=== PATIENT | female | born 1945 | race Caucasian/White ===

== ENCOUNTER → 2016-08-19 | Outpatient (REF) | payer MEDICARE, MEDICAID ==
[~2016-08-19] MED LIST: /IPRAINH INH; ACTO15TA6 PO; ADV250INH INH; ASPI325T PO; ATEN25TA PO; BACITAB3 PO; BACT800T5 PO; CEPH2CAP PO; CLIN150C PO; CYMB1CAP PO; DOC-8.6T PO; DOCU10ELUD PO; ENAL5TA PO; FURO40TA2 PO; GABA300C2 PO; GLIP10TA6 PO; GLYB5TAB5 PO; IPRASOL4 INH; IRON325T3 PO; KLOR10TA21 PO; LIPI10TA PO; LORA10TA2 PO; MAGN400T2 PO; METF1000 PO; MOME50SP; MUCI600T34 PO; NEBUMIS2 INH; OMEP40CA2 PO; OXYC80TA PO; PANT40TA2 PO; PERCOCET PO; PROAAER IN; SENN8.6C PO; SILV1CRE19 TOP; TETR250C3 PO; TYLE325T5 PO; VENTAER IN; VITA100T2 PO; VITA500C24 PO; ambien PO
[2016-08-19 18:10] LABS: ALBUMIN 2.8 GM/DL (3.2-5.2); ALBUMIN/GLOBULIN RATIO 0.62 (1.00-1.93); ALKALINE PHOSPHATASE 90 U/L (45-117); ALT/SGPT 7 U/L (12-78); AST/SGOT 13 U/L (15-37); BILIRUBIN,TOTAL 0.3 MG/DL (0.2-1.0); BLOOD UREA NITROGEN 10 MG/DL (7-18); CALCIUM LEVEL 8.5 MG/DL (8.8-10.2); CARBON DIOXIDE LEVEL 29 MEQ/L (21-32); CREATININE FOR GFR 0.64 MG/DL (0.55-1.02); GLOMERULAR FILTRATION RATE > 60.0 (>39); GLUCOSE, FASTING 160 MG/DL (83-110); TOTAL PROTEIN 7.3 GM/DL (6.4-8.2)
[2016-08-19 18:16] LABS: ANION GAP 8 MEQ/L (8-16); CHLORIDE LEVEL 104 MEQ/L (98-107); POTASSIUM SERUM 3.8 MEQ/L (3.5-5.1); SODIUM LEVEL 141 MEQ/L (136-145)
[2016-08-19 19:27] LABS: MEAN CORPUSCULAR HEMOGLOBIN 28.2 pg (27.0-33.0); MEAN CORPUSCULAR HGB CONC 31.7 g/dl (32.0-36.5); MEAN CORPUSCULAR VOLUME 88.8 fl (80.0-96.0); RED CELL DISTRIBUTION WIDTH 15.4 % (11.5-14.5); WHITE BLOOD COUNT 10.9 K/mm3 (4.0-10.0)
== END ==
LOC: M SFHCCLAY 11:28
PROVIDERS: ATTEND Family Medicine
DX: E11.42 Type 2 diabetes mellitus with diabetic polyneuropathy (principal); Z86.2 Personal history of diseases of the blood and blood-forming organs and certain disorders involving the immune mechanism
CPT/HCPCS: 36415; 80053; 83036; 85027; G0463

== ENCOUNTER → 2017-01-06 | Outpatient (REF) | payer MEDICARE, MEDICAID ==
[~2017-01-06] MED LIST changes: +ALBU83IN INH; +ALEV220T26 PO; +ASPI1TAB PO; +ASPI325T24 PO; +ATOR1TAB19 PO; +BACITAB PO; -BACITAB3 PO; +DIGO0.12 PO; -DOC-8.6T PO; +DOC-8.6T3 PO; +DULO1CAP2 PO; +ELIQ5TAB PO; +ENAL10TA2 PO; +GABA-282 PO; +METF10004 PO; +METO1TAB33 PO; +MIRA0.254 PO; +OXYC1TAB23 PO; +OXYC60TA8 PO; +PIOG15TA3 PO; +PROAAER10 INH; -SILV1CRE19 TOP; +SILV1CRE60 TOP; +STOO100C PO; +THIA100T6 PO; +VITMTA PO; +ZOLP10TA2 PO
[2017-01-07 11:23] LABS: BASO % 0.5 % (0.0-1.0); EOS # 0.2 K/mm3 (0.0-0.50); EOS % 1.6 % (0.0-3.0); LARGE UNSTAINED CELL # 0.1 K/mm3 (0.0-0.4); LARGE UNSTAINED CELL % 0.9 % (0.0-4.0); LYMPH # 1.6 K/mm3 (1.5-4.5); MEAN CORPUSCULAR HEMOGLOBIN 26.7 pg (27.0-33.0); MEAN CORPUSCULAR HGB CONC 30.6 g/dl (32.0-36.5); MEAN CORPUSCULAR VOLUME 87.3 fl (80.0-96.0); MONO # 0.5 K/mm3 (0.0-0.8); MONO % 4.8 % (0.0-5.0); NEUTROPHILS # 8.9 K/mm3 (1.8-7.7); NEUTROPHILS % 79.2 % (36.0-66.0); PLATELET COUNT, AUTOMATED 357 k/mm3 (150-450); RED CELL DISTRIBUTION WIDTH 15.8 % (11.5-14.5); WHITE BLOOD COUNT 11.2 K/mm3 (4.0-10.0)
[2017-01-07 11:38] LABS: ALBUMIN 2.9 GM/DL (3.2-5.2); ALBUMIN/GLOBULIN RATIO 0.66 (1.00-1.93); ALKALINE PHOSPHATASE 79 U/L (45-117); ALT/SGPT 16 U/L (12-78); ANION GAP 7 MEQ/L (8-16); AST/SGOT 40 U/L (15-37); BILIRUBIN,TOTAL 0.3 MG/DL (0.2-1.0); BLOOD UREA NITROGEN 20 MG/DL (7-18); CALCIUM LEVEL 8.8 MG/DL (8.8-10.2); CARBON DIOXIDE LEVEL 31 MEQ/L (21-32); CHLORIDE LEVEL 99 MEQ/L (98-107); CREATININE FOR GFR 0.95 MG/DL (0.55-1.02); GLOMERULAR FILTRATION RATE > 60.0 (>39); GLUCOSE, FASTING 195 MG/DL (83-110); POTASSIUM SERUM 5.1 MEQ/L (3.5-5.1); SODIUM LEVEL 137 MEQ/L (136-145); TOTAL PROTEIN 7.3 GM/DL (6.4-8.2)
== END ==
LOC: M SFHCCLAY 14:39
PROVIDERS: ATTEND Family Medicine
DX: E11.42 Type 2 diabetes mellitus with diabetic polyneuropathy (principal)
CPT/HCPCS: 36415; 80053; 83036; 85025; G0463

== ENCOUNTER → 2017-01-07 | Outpatient (REF) | payer MEDICARE, MEDICAID | LOC: M LAB REF 15:50 | PROVIDERS: ATTEND Podiatrist | DX: L97.522 Non-pressure chronic ulcer of other part of left foot with fat layer exposed (principal); E11.42 Type 2 diabetes mellitus with diabetic polyneuropathy ==

== ENCOUNTER 2017-01-27 16:30 | Inpatient (IN) | payer MEDICARE, MEDICAID ==
[~2017-01-27] VITALS: Ht 157.5 cm; Wt 59.6 kg
[~2017-01-27 16:30] MED LIST changes: -ALBU83IN INH; -ALEV220T26 PO; -ASPI1TAB PO; -ASPI325T24 PO; -ATOR1TAB19 PO; -DIGO0.12 PO; -DULO1CAP2 PO; -ELIQ5TAB PO; -ENAL10TA2 PO; -GABA-282 PO; -METF10004 PO; -METO1TAB33 PO; -MIRA0.254 PO; -OXYC1TAB23 PO; -OXYC60TA8 PO; -PIOG15TA3 PO; -PROAAER10 INH; -STOO100C PO; -THIA100T6 PO; -VITMTA PO; -ZOLP10TA2 PO
[2017-01-27 18:40] LABS: BASO % 0.4 % (0.0-1.0); EOS % 0.7 % (0.0-3.0); LARGE UNSTAINED CELL # 0.1 K/mm3 (0.0-0.4); LARGE UNSTAINED CELL % 1.1 % (0.0-4.0); LYMPH # 1.3 K/mm3 (1.5-4.5); LYMPH % 16.2 % (24.0-44.0); MEAN CORPUSCULAR HEMOGLOBIN 25.9 pg (27.0-33.0); MEAN CORPUSCULAR HGB CONC 30.1 g/dl (32.0-36.5); MEAN CORPUSCULAR VOLUME 86.2 fl (80.0-96.0); MONO # 0.3 K/mm3 (0.0-0.8); MONO % 3.4 % (0.0-5.0); NEUTROPHILS % 78.3 % (36.0-66.0); PLATELET COUNT, AUTOMATED 322 k/mm3 (150-450); RED CELL DISTRIBUTION WIDTH 16.4 % (11.5-14.5); WHITE BLOOD COUNT 7.7 K/mm3 (4.0-10.0)
[2017-01-27 18:42] LABS: ADD MORPHOLOGY? YES
[2017-01-27 18:52] LABS: ALBUMIN 2.4 GM/DL (3.2-5.2); ALBUMIN/GLOBULIN RATIO 0.62 (1.00-1.93); BILIRUBIN,DIRECT 0.1 MG/DL (0.0-0.2); BILIRUBIN,TOTAL 0.2 MG/DL (0.2-1.0); CALCIUM LEVEL 7.6 MG/DL (8.8-10.2); CREATININE FOR GFR 1.33 MG/DL (0.55-1.02); GLOMERULAR FILTRATION RATE 41.7 (>39); POTASSIUM SERUM 4.8 MEQ/L (3.5-5.1); TOTAL PROTEIN 6.3 GM/DL (6.4-8.2)
--- NOTE | 2017-01-27 19:19 | REP ---
PORTABLE CHEST: HISTORY: History of SIRS. COMPARISON: 06/12/2014, which is the latest prior. The technique utilized in obtaining the radiograph has magnified the cardiac silhouette and accentuated the interstitial markings. Upright portable exam shows pulmonary vascular redistribution and a diffuse haziness throughout the pulmonary vasculature with basilar predominance. There is cardiomegaly. The pacemaker device leads are unchanged. IMPRESSION: Cardiomegaly and evidence of interstitial edema. Bilateral pleural effusions right greater than left cannot be ruled out by this limited portable exam. Signed by Augustine Man DO 01/27/2017 07:44 P
[2017-01-27] MEDS ORDERED: VANCOMYCIN HCL 1,000 MG, VIAL MATE ADAPTER 1 EACH in D5W 250 ML IV ONE (19:45)
[2017-01-27 20:08] LABS: FREE T4 1.19 NG/DL (0.76-1.46); MAGNESIUM LEVEL 1.8 MG/DL (1.8-2.4); PHOSPHORUS LEVEL 4.2 MG/DL (2.5-4.9)
--- NOTE | 2017-01-27 20:10 | REPUSA ---
CLINICAL HISTORY: Edema. COMMENTS: Real time sonography with duplex doppler of the extremities bilaterally was performed with attention to the major deep venous structures. Evaluation reveals the common femoral, superficial femoral and popliteal veins bilaterally to be comp letely compressible without intraluminal thrombus. There is normal spontaneous phasic flow and augmen tation in all deep veins. The greater saphenous/common femoral vein junctions are patent bilaterally. 2 cm left Miller's cyst is noted incidentally. IMPRESSION: No evidence of DVT in the lower extremities bilaterally. 2 cm left Miller's cyst. Thank you for your kind referral of this patient.
[2017-01-27 20:16] LABS: ANISOCYTOSIS 1+; HYPOCHROMASIA 1+
[2017-01-27] MEDS ORDERED: METOPROLOL 5 MG/5 ML VIAL IV STA ×2 (20:29→22:13)
[2017-01-27] MEDS ORDERED: DIGOXIN INJ 0.5 MG/2 ML AMP (J1160) IV ONE (20:30)
[2017-01-27] MEDS ORDERED: NS 250 ML IV ONE (20:30)
[2017-01-27] MEDS ORDERED: oxyCODONE 10 MG CR TAB PO SCH (21:00)
[2017-01-27] MEDS ORDERED: AMIODARONE HCL 150 MG in APPROPRIATE DILUENT 1 EA IV STA (21:50)
[2017-01-27] MEDS ORDERED: DEXTROSE 50% 50 ML SYRINGE IV PRN (22:00)
[2017-01-27] MEDS ORDERED: GLUCAGON FOR INJ 1 MG VIAL (J1610) SC PRN (22:00)
[2017-01-27] MEDS ORDERED: GLUCOSE 4 GM CHEW TABLET PO PRN (22:00)
[2017-01-27] MEDS ORDERED: ASPI325T24 PO (22:01)
[2017-01-27] MEDS ORDERED: GABA-282 PO ×2 (22:01→22:05)
[2017-01-27] MEDS ORDERED: ALBU83IN INH (22:01)
[2017-01-27] MEDS ORDERED: ENAL10TA2 PO (22:01)
[2017-01-27] MEDS ORDERED: STOO100C PO (22:01)
[2017-01-27] MEDS ORDERED: MIRA0.254 PO (22:01)
[2017-01-27] MEDS ORDERED: ZOLP10TA2 PO (22:01)
[2017-01-27] MEDS ORDERED: VITMTA PO (22:01)
[2017-01-27] MEDS ORDERED: OXYC60TA8 PO (22:01)
[2017-01-27] MEDS ORDERED: FURO40TA2 PO (22:05)
[2017-01-27] MEDS ORDERED: PROAAER10 INH (22:05)
[2017-01-27] MEDS ORDERED: DULO1CAP2 PO (22:05)
[2017-01-27] MEDS ORDERED: ATOR1TAB19 PO (22:05)
[2017-01-27] MEDS ORDERED: OXYC1TAB23 PO (22:05)
[2017-01-27] MEDS ORDERED: THIA100T6 PO (22:05)
[2017-01-27] MEDS ORDERED: OMEP40CA2 PO (22:05)
[2017-01-27] MEDS ORDERED: LORA10TA2 PO (22:05)
[2017-01-27] MEDS ORDERED: METF10004 PO (22:05)
[2017-01-27] MEDS ORDERED: PIOG15TA3 PO (22:05)
[2017-01-27] MEDS ORDERED: ALEV220T26 PO (22:05)
[2017-01-27 22:13] LABS: PERCENT SATURATION 7.4 % (13.2-45.0)
[2017-01-27] MEDS ORDERED: ACETAMINOPHEN TAB 650MG DOSE (2X325MG) PO ONE (22:15)
[2017-01-27] MEDS ORDERED: FUROSEMIDE 20 MG/2 ML VIAL (J1940) IV ONE (22:15)
[2017-01-27 22:30] LABS: RETIC HEMOGLOBIN CONTENT CHr 25.9 PG (24-36); RETICULOCYTE % 2.7 % (0.5-1.5)
[2017-01-27 22:34] LABS: REASON FOR REVIEW ANEMIA / RBC MORPH
[2017-01-27] MEDS ORDERED: IPRATROPIUM 0.5MG/ALBUTEROL 2.5MG INH SOL UD 3ML (DUONEB)(J7620) NEB PRN (22:45)
[2017-01-27] MEDS ORDERED: PERCOCET 5MG/325MG TAB PO PRN (22:45)
[2017-01-27] MEDS ORDERED: PRAMIPEXOLE 0.25 MG TAB PO PRN (22:45)
[2017-01-27] MEDS ORDERED: zolPIDEM TARTRATE 5 MG TAB PO PRN (22:45)
[2017-01-27] MEDS: HumaLOG INSULIN (NovoLOG) PER UNIT SC SCH (22:58)
[2017-01-27 23:25] LABS: INR 1.11
[2017-01-27 23:30] VITALS: BP 95/67
[2017-01-28] VITALS (25 sets, daily range): BP systolic 87–130; BP diastolic 51–81; O2SAT 94
[2017-01-28] MEDS ORDERED: FUROSEMIDE 20 MG/2 ML VIAL (J1940) IV ONE ×2 (00:45→07:30)
[2017-01-28] MEDS ORDERED: ACETAMINOPHEN TAB 650MG DOSE (2X325MG) PO ONE (00:45)
[2017-01-28 01:16] LABS: DIGOXIN LEVEL 1.5 NG/ML (0.5-2.0)
[2017-01-28] MEDS: THIAMINE 100 MG TAB PO SCH ×3 (01:19→21:55)
[2017-01-28] MEDS: GABAPENTIN 300 MG CAP PO SCH ×4 (01:19→21:57)
[2017-01-28] MEDS: oxyCODONE 40 MG CR TAB PO SCH ×3 (01:19→21:57)
[2017-01-28] MEDS: IPRATROPIUM 0.5MG/ALBUTEROL 2.5MG INH SOL UD 3ML (DUONEB)(J7620) NEB SCH ×4 (01:56→23:17)
[2017-01-28] MEDS ORDERED: DIGOXIN INJ 0.5 MG/2 ML AMP (J1160) IV ONE (02:00)
--- NOTE | 2017-01-28 03:51 | PHACANCOPD ---
PHARMACY VANCOMYCIN DOSING Pt Demographics Demographics Patient Age:71 , Weight:62.000 , Gender: female Adjusted Body Weight Date: 01/28/17, Adjusted Body Weight: [52.27] Kg ACTUAL WT Vancomycin Vancomycin indication: LE CELLULITIS Vancomycin Target Ranges: 10-20 mcg/ml Vancomycin Load Y/N: No Load Dose Date Time Vancomycin Load Dose: Date: Time: Vancomycin Dose Date: 01/28/17. Current Vancomycin Dose: [1 GM IV Q24H] Intermittent Dosing?: No Labs Labs Laboratory Tests 01/27/17 17:57 Red Blood Count 3.32 L, Mean Corpuscular Volume 86.2, Mean Corpuscular Hemoglobin 25.9 L, Mean Corpuscular Hemoglobin Concent 30.1 L, Red Cell Distribution Width 16.4 H, Neutrophils (%) (Auto) 78.3 H, Lymphocytes (%) (Auto ) 16.2 L, Monocytes (%) (Auto) 3.4, Eosinophils (%) (Auto) 0.7, Basophils (%) ( Auto) 0.4, Neutrophils # (Auto) 6.0, Lymphocytes # (Auto) 1.3 L, Monocytes # ( Auto) 0.3, Eosinophils # (Auto) 0.0, Basophils # (Auto) 0.0 Micro Microbiology 01/27/17 Blood Culture, Received Pending 01/27/17 Blood Culture, Received Pending 01/28/17 Urine Culture, Received Pending Creatinine Clearance Date:01/28/17. Creatinine Clearance: [34.3].CALCULATED Pending Labs VANCOMYCIN TROUGH DUE 01/29@1099 Assessment and Plan Maintaining Current Dose?: Yes Reason for dose change: No Dose Change Pharmacist Note Pharmacist Note Date: 01/28/17. Pharmacist note:71yof,SCR=1.33,crcl=34.3,ht=62",wt=52.27, ALLERGIES:QUINOLONES,AUGMENTIN,CLARITHROMYCIN PRESENTED WITH LE CELLULITIS, VANCO 1 GM IN ED@01/27,Will continue at 1 gm iv Q24H@1200,first trough ordered for 01/29@1100 [facility] Jan 28, 2017 03:51
--- NOTE | 2017-01-28 04:48 | HPE ---
DATE OF ADMISSION: 01/27/2017 TIME: Patient was seen at 2100 PRIMARY CARE PROVIDER: Zackary Lorenz MD. DEVELOPMENT GEOLOGIST: Cherrie Mtz MD. RADIO TELEVISION ANNOUNCER: Tito Aguilar DPM. CHIEF COMPLAINT: Atrial fibrillation with rapid ventricular response (RVR) with palpitations and also swelling in the lower extremity, was sent by Dr. Aguilar from his office. HISTORY OF PRESENT ILLNESS: 71-year-old female with a past medical history of uncontrolled type 2 diabetes, hyperlipidemia, scoliosis, cellulitis of the bilateral feet, and also diabetic ulcer of bilateral feet, dual chamber pacemaker, heart failure with preserved ejection fraction and grade I diastolic dysfunction, heavily thickened calcification and restricted mitral leaflet abnormality with severe mitral stenosis, mild tricuspid insufficiency, at least mild pulmonary hypertension, presented with swelling in the lower extremities and also atrial fibrillation with RVR, was sent by Dr. Aguilar from his office this afternoon. Per patient, she has been feeling shortness of breath for roughly 1 week. Also felt palpitations at times and she was also feeling very weak and feeling dizzy when she tries to stand up. She also admits to roughly 20-pound weight loss in 1 month and patient does not know the cause of it. She also complains of diarrhea, 2-3 times a day for the past 1 week; however, it was nonbloody per patient. Otherwise, patient denies any chest pain, chest pressure , any current nausea, vomiting or abdominal pain. Stated that last bowel movement was yesterday. Has not had any diarrhea today yet; however, she is feeling a little bit bloated and she noticed increased swelling in the lower extremities, which is unusual for her. Otherwise, she does have bilateral diabetic ulcer and follows Dr. Aguilar. She also follows Dr. Mtz for atrial fibrillation and also heart failure and possibly high degree AV block with pacemaker placement. ALLERGIES: She is allergic to AMOXICILLIN, CLARITHROMYCIN, CLAVULANIC ACID, MELOXICAM, NORFLOXACIN, PHENAZOPYRIDINE, QUINOLONES. CODE STATUS: The patient is FULL CODE. HOME MEDICATIONS: - albuterol sulfate 2.5 mg inhalation every 6 hours as needed - ProAir two puff inhalation every 4 hours - vitamin C 500 mg one tablet by mouth daily - aspirin 325 mg one tablet by mouth daily - atorvastatin 10 mg one tablet by mouth daily - docusate sodium 100 mg one tablet by mouth twice a day - duloxetine 30 mg one tablet by mouth daily - enalapril 10 mg one tablet by mouth daily - Lasix 40 mg one tablet by mouth twice a day - gabapentin 300 mg one tablet by mouth twice a day - gabapentin 600 mg one tablet by mouth daily - glipizide 10 mg by mouth twice a day - loratadine 10 mg by mouth daily - metformin 1000 mg one tablet by mouth twice a day - multivitamin one tablet by mouth daily - naproxen 440 mg one tablet by mouth twice a day as needed - omeprazole 40 mg one tablet by mouth twice a day - oxycodone 60 mg one tablet by mouth every 12 hours - oxycodone/acetaminophen one tablet by mouth every 6 hours as needed - pioglitazone 15 mg one tablet by mouth daily - Mirapex 0.25 mg one tablet by mouth twice a day as needed - silver sulfadiazine one topically twice a day, use on the right foot - thiamine 100 mg by mouth twice a day - zolpidem 10 mg by mouth nightly PAST MEDICAL HISTORY: 1. Type 2 diabetes, not on insulin at home. 2. Hyperlipidemia. 3. Scoliosis. 4. Chronic diabetic ulcer of bilateral feet. 5. 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 6. Atrial fibrillation. 7. History of falls. 8. Mitral stenosis 9. Heart failure with preserved ejection fraction. 10. Chronic pains. 11. Vitamin deficiency. 12. Insomnia. PAST SURGICAL HISTORY: 1. Pacemaker placement. 2. Amputated third and fourth digit on the left lower extremity due to uncontrolled diabetes. 3. Tendon repair. 4. Cataract repair. SOCIAL HISTORY: Patient currently admits to smoking about half pack per day for at least 40 years. Denies any drinking or use of any recreational drugs. Patient lives with her roommate. Patient did travel recently to [place] to visit patient's daughter and over there she did have an admission to the hospital for sepsis and septic encephalopathy. FAMILY HISTORY: Patient has three children. One of her sons from leukemia. Patient's father also from heart disease. Mother is healthy. Brother was diagnosed with kidney disease. REVIEW OF SYSTEMS: GENERAL: Patient denies any fever or chills recently. Admits to feeling tired and dizzy, especially when she tried to stand up. Denies any sick contact; however, she did travel back to [place] to visit her daughter back in October and had a recent admission at the end of October, early November for possibly sepsis and septic encephalopathy. She does admit to recent antibiotic usage for patient's diabetic foot ulcer. Patient also admits to weight loss, about 20 pounds in 1 month, which was unexplained. HEENT: Denies any changes with vision, smell, hearing or taste. CARDIOVASCULAR: Admits to orthopnea. Patient sleeps with two pillows at night. Admits to increased shortness of breath recently and increased swelling in the lower extremities. Denies any chest pain. Admits to palpitations. Admits to dizziness when she tries to stand up. PULMONARY: Admits to sleep apnea. Denies any use of oxygen. Denies any cough. Denies any sputum production. Admits to increased shortness of breath in the past 1 week. GASTROINTESTINAL (GI): Denies any abdominal pain currently; however, she does admit to cramps intermittently for the past 1 week. She also has diarrhea, about 2-3 times a day. It was watery and brown looking. Denies any blood in the stool. Admits to occasional nausea, however, currently feels okay. Denies any vomiting. Denies any constipation. GENITOURINARY (): Denies any problem with urination. Denies any dysuria, urinary urgency, urinary incontinence or burning on urination. MUSCULOSKELETAL: Admits to severe scoliosis and chronic pains as a result. NEUROLOGICAL: Denies any weakness on any one side of her body. However, admits to generalized weakness. HEMATOLOGY/ONCOLOGY: Denies any bleeding anywhere. Denies any easy bruising. However, she does have type 2 diabetes. PSYCHIATRIC: Denies any anxiety, depression. PHYSICAL EXAMINATION: VITAL SIGNS: Temperature 98.7, pulse 136, blood pressure 111/60. Oxygen was saturating at 93% on room air. GENERAL: Patient is an obese-looking elderly female who was alert, awake, and oriented times three. Does not appear to be in distress, lying comfortably in bed with head elevated at 60 degrees. HEENT: Normocephalic, atraumatic. Extraocular motor intact. Mucosa moist. NECK: Supple, no neck lymphadenopathy. No significant jugular venous distention (JVD) was noted. CARDIOVASCULAR: Tachycardic, irregular, irregular. No murmurs. LUNGS: Bilaterally with rales, especially in the basilar region. ABDOMEN: Positive bowel sounds. Slightly distended. No peritoneal signs. No ecchymosis. Not tender to palpation. EXTREMITIES: 1+ pitting edema throughout the lower extremities extending all the way to the waistline. SKIN: Warm and dry. NEUROLOGIC: Cranial nerves II-XII intact. No focal neurological deficit. LABORATORY DATA: WBC 7.7, hemoglobin 8.6, hematocrit 28.6 with a platelet count of 322 and MCV of 86.2. ESR was 54, absolute reticulocyte count was 92, elevated, percentage reticulocyte was 2.7. Sodium 138, potassium 4.2, chloride 106, bicarbonate 21, anion gap 11, BUN 32, creatinine 1.33, GFR 41.7. Patient's baseline GFR was greater than 60%. Lactic acid was elevated 3.6, calcium 7.6, phosphorus 4.2, magnesium 1.8, iron 18, TIBC 242, transferrin percentage was 7.4, ferritin was 33. Total bilirubin 0.2, direct bilirubin 0.1, AST 16, ALT 13, alkaline phosphatase 60, creatinine kinase 123, CK-MB 8.6, troponin elevated 0.25, CRP was 2.8, total protein 6.3, albumin 2.4, TSH 1.6, free T4 1.19. PT , INR, PTT are all pending. Patient's glucose was 101. Blood culture times two are pending. Two units of packed red blood cells (PRBCs ) have been ordered. Will transfuse 1 unit PRBC currently. Patient has a lower extremity Doppler ultrasound ordered, shows no DVT, however, there was a 2 cm left Miller's cyst. Patient also has a portable chest x-ray done in the emergency room, shows cardiomegaly, and evidence of interstitial edema, bilateral pleural effusion, right greater than left, cannot rule out by limited portable exam. ASSESSMENT AND PLAN: 71-year-old female with multiple comorbidities, most significantly atrial fibrillation, not on anticoagulation due to possibly fall risk, high degree AV block, status post pacemaker placement, mitral stenosis, uncontrolled type 2 diabetes, diabetic foot ulcers, heart failure with preserved ejection fraction, hyperlipidemia, scoliosis, insomnia, obstructive sleep apnea on continuous positive airway pressure (CPAP) at night, presented with: 1. Atrial fibrillation with rapid ventricular response (RVR). Ventricular rate was in the 140s, 150s. Dr. Wilson from cardiology has been consulted. We appreciate his help. Recommended to give patient digoxin. Therefore, digoxin has been ordered. However, emergency room's digoxin somehow was not given to patient. Therefore, a repeat dose was ordered again. Etiology of RVR appears to be multifactorial. Possibly secondary to decompensated heart failure versus infectious etiologies. At this point, will continue to monitor patient on cardiac telemetry. Will continue beta tanya and digoxin and follow cardiology recommendations and follow strict intake and output (I and O). 2. Decompensated heart failure possibly due to afib with RVR with lower extremity edema extending all the way to the waistline. Complicated by mitral stenosis. Patient did receive a small dose of Lasix 20 mg in the emergency room. We have ordered another 40 mg intravenous (IV). At this point, will be very gentle with diuresis due to patient's blood pressure appears to be soft, systolic around 100. Will continue strict I and O and follow cardiology recommendations. 3. Possible acute gastrointestinal (GI) blood loss anemia with a hemoglobin of 8.6. Patient's baseline appears to be roughly 10. Rectal exam was done, no melissa blood. Fecal occult blood has been ordered. Will followup. At this point, will transfuse patient with 1 unit of packed red blood cells (PRBC). Will consider to transfuse another unit if needed and will give patient one dose of Lasix 40 mg IV due to patient's heart failure and continue to monitor. Currently, patient does not require oxygen. 4. Pulmonary edema with bilateral pleural effusion. Possibly secondary to heart failure. Will continue to monitor. At this point, patient does not require oxygen. Will treat patient's heart failure and followup with the resolution of the pleural effusion. 5. Abdominal cramp with diarrhea for more than a week and also recent use of antibiotic. However, there is no white count. Suspicious of possible intra-abdominal etiology such as Clostridium (C) difficile. GI panel has been ordered. Will followup. Once patient becomes more stable, possibly followup with a CT of abdomen. At this point, will start patient on regular diet with no added salt with fluid restriction due to patient does not complain of any nausea currently and did have a bowel movement yesterday. However, will place patient on aspiration precautions. 6. Diabetic foot ulcer. Follows Dr. Aguilar in his office and was recently on antibiotic. We have consulted Dr. Aguilar and will follow his recommendations. Currently, the foot ulcer does appear to be erythematous. Therefore, will start patient on vancomycin IV every 24 hours and continue to monitor. 7. Uncontrolled type 2 diabetes. Continue patient on insulin sliding scale. Will hold all home medications. 8. Chronic pain due to scoliosis. Will continue to monitor and will restart patient's home medications. 9. Possible history of chronic obstructive pulmonary disease (COPD), however, it was not on her medical record. Continue DuoNebs. 10. Obstructive sleep apnea on CPAP at night. Patient stated that she could not bring the CPAP machine from home due to patient's roommate is not home. Therefore, will start patient with an inpatient CPAP and have friend to bring in the CPAP machine whenever it is possible. 11. Hyperlipidemia. Continue home statin. 12. History of insomnia. We have reduced patient's Ambien from 10 mg to 2.5 mg due to increased shortness of breath and also sleep apnea. 13. The patient has acute kidney injury with a creatinine of 1.33. Possibly from heart failure versus dehydration. Urine electrolytes have been ordered. Will followup. 14. Elevated troponin, which was 0.25. Will continue to trend. Possibly secondary to demand ischemia from atrial fibrillation. Will continue home aspirin and statin. 15. Deep venous thrombosis (DVT) prophylaxis with heparin 5000 units twice a day and also sequential compression devices (SCDs) and thromboembolism deterrent stockings (TEDS). 16. Fluid, electrolytes and diet. Will hold any IV fluid currently due to heart failure. Potassium appears to be 4.8. Does not need to be repleted. The patient is on a carbohydrate consistent diet with no added salt and 2 liters of fluid restriction currently. DISPOSITION: Patient has atrial fibrillation that is multifactorial, possibly due to heart failure versus infection. Patient also having demand ischemia. Dr. Wilson from cardiology has been consulted. In addition, Dr. Aguilar from podiatry has been consulted. Will follow their recommendations. Patient will be seen by Dr. Lorenz in the morning. Patient has been discussed with attending doctor, Dr. Harrell. My preceptor for this patient encounter was Dr. Philly Harrell. The preceptor was physically present in the building during the encounter and was fully available as needed. All aspects of the patient interview, examination, medical decision making process, and medical care plan development were reviewed and approved by the preceptor. The preceptor is aware and concurs with the plan as stated in the body of this note and will attest to such by his/her co-signature. ATTENDING PHYSICIAN ADDENDUM: I have independently interviewed and examined this patient at the bedside, and agree with the assessment and management plans as I have discussed with my Resident Physician and documented above. ESTHER
[2017-01-28] MEDS ORDERED: METOPROLOL 5 MG/5 ML VIAL IV SCH (05:00)
--- NOTE | 2017-01-28 07:11 | ECGEPIP ---
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
--- NOTE | 2017-01-28 07:11 | ECGEPIP ---
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
[2017-01-28] MEDS: HumaLOG INSULIN (NovoLOG) PER UNIT SC SCH ×4 (07:36→21:52)
[2017-01-28] MEDS: ATORVASTATIN 10 MG TAB PO SCH (08:03)
[2017-01-28] MEDS: MULTIVITAMINS/MINERALS THERAP 1 TAB PO SCH (08:03)
[2017-01-28] MEDS: LACTOBACILLUS ACIDOPHILUS CAP (BACID) PO SCH ×2 (08:03→21:55)
[2017-01-28] MEDS: OMEPRAZOLE 20 MG CAP PO SCH (08:04)
[2017-01-28] MEDS: LORATADINE 10 MG TAB PO SCH (08:04)
[2017-01-28] MEDS: DOCUSATE SODIUM 100 MG CAP PO SCH ×2 (08:05→21:57)
[2017-01-28] MEDS: DULoxetine 30 MG CAP (CYMBALTA) PO SCH (08:05)
[2017-01-28] MEDS: ASPIRIN ENTERIC 325 MG TAB PO SCH (08:05)
[2017-01-28] MEDS: ASCORBIC ACID 500 MG TAB PO SCH (08:05)
[2017-01-28 08:37] LABS: MEAN CORPUSCULAR HEMOGLOBIN 27.5 pg (27.0-33.0); MEAN CORPUSCULAR VOLUME 88.7 fl (80.0-96.0); RED CELL DISTRIBUTION WIDTH 15.9 % (11.5-14.5); WHITE BLOOD COUNT 8.8 K/mm3 (4.0-10.0)
[2017-01-28 08:59] LABS: CALCIUM LEVEL 8.4 MG/DL (8.8-10.2); CREATININE FOR GFR 1.39 MG/DL (0.55-1.02); GLOMERULAR FILTRATION RATE 39.7 (>39); POTASSIUM SERUM 4.9 MEQ/L (3.5-5.1)
[2017-01-28] MEDS ORDERED: APIXABAN 2.5 MG TAB (ELIQUIS) PO SCH (09:00)
[2017-01-28] MEDS ORDERED: SILVER SULFADIAZINE 1% CR 50 GM JAR TOP SCH (09:00)
--- NOTE | 2017-01-28 09:16 | IPNPDOC ---
Subjective Date Seen The patient was seen on 01/28/17. Subjective Chief Complaint/HPI The patient is a 71-year-old female admitted with a reason for visit of A-Fib With Rapid Ventricular Response. Events since last encounter Pt states she is feeling better today. Still a little shortness of breath but states breathing is better. Denies CP, ABD pain. Denies any further diarrhea. Had solid BM last night. Denies F/C. Constitutional: Denies: Chills, Fever Pulmonary: Reports: Dyspnea Cardiovascular: Denies: Chest Pain, Palpitations Gastrointestinal: Denies: Nausea, Vomiting, Abdominal Pain, Diarrhea Objective Physical Examination General Exam: Positive: Alert, No Acute Distress Neck Exam: Positive: Supple, Negative: JVD Chest Exam: Positive: Clear to auscultation Heart Exam: Positive: Irregular Rhythm Telemetry: Positive: Atrial fibrillation Abdomen Exam: Positive: Normal bowel sounds, Soft, Negative: Tenderness Extremity Exam: Positive: Edema (1+ pitting edema L>R. B/L distal erythema.) Assessment /Plan Problems (1) Atrial fibrillation with rapid ventricular response Status: Acute Problem Specific Plan: Consult Specialist, Monitor Clinically, Repeat Labs Problem Text: 01/28 - Cardiology consulted. Pt seen by Dr Mtz whom she follows with as outpt. Pt getting Lopressor 5 mg IV q6hrs. Did get Dig in ER. Not getting anticoagulation. Anemic with question of blood loss. Received 2 units PRBCs. AM Hgb pending. (2) CHF (congestive heart failure) Status: Acute Problem Specific Plan: Consult Specialist, Monitor Clinically, Repeat Labs Problem Text: 01/28 - Cardiology consulted. BNP 556. Received Lasix last night and earlier this AM between PRBC transfusions. BPs a little soft. (3) Elevated troponin Status: Acute Problem Specific Plan: Consult Specialist, Monitor Clinically, Repeat Labs Problem Text: 01/28 - Cardiology consulted. Trops 0.25/ 0.24/ Pending. (4) Cellulitis of both lower extremities Status: Acute Problem Specific Plan: Monitor Clinically, Repeat Labs Problem Text: 01/28 - Started on Vanco. Today's WBC pending. Doppler U/S: No evidence of DVT in the lower extremities bilaterally. 2 cm left Miller's cyst. (5) Anemia Status: Acute Problem Specific Plan: Monitor Clinically, Repeat Labs Problem Text: 01/28 - Pt received 2 units PRBCs. Today's CBC Pending. (6) Pleural effusion Status: Acute Problem Specific Plan: Monitor Clinically, Repeat Labs Problem Text: Possibly secondary to heart failure. (7) Diabetic foot ulcer Status: Acute Problem Specific Plan: Consult Specialist, Monitor Clinically, Repeat Labs Problem Text: 01/28 - Follows with Dr Aguilar/podiatry. Started on Vanco. (8) DM2 (diabetes mellitus, type 2) Status: Chronic Problem Specific Plan: Monitor Clinically, Repeat Labs Problem Text: SSI (9) Hyperlipidemia Status: Chronic Problem Specific Plan: Monitor Clinically, Repeat Labs Problem Text: Lipitor (10) ANGEL LUIS (acute kidney injury) Status: Acute Problem Specific Plan: Monitor Clinically, Repeat Labs Problem Text: 01/28 - Today's labs pending. Plan/VTE VTE Prophylaxis Ordered?: No (order TEDs and SCDs) Plan/Urinary Catheter Reason for insertion/continuin: Critical Pt monitoring VS, I&O, 24H, Fishbone Vital Signs/I&O Vital Signs Date Time Temp Pulse Resp B/P (MAP) Pulse Ox O2 Delivery O2 Flow Rate FiO2 01/28/17 08:05 18 98 Nasal Cannula 2.0 01/28/17 07:00 98.8 108 106/62 (77) I&O- Last 24 Hours up to 6 AM 01/28/17 06:00 Intake Total 670 ml Output Total 140 ml Balance 530 ml Laboratory Data 24H LABS Laboratory Tests 2 01/27/17 17:57: White Blood Count 7.7, Red Blood Count 3.32L, Hemoglobin 8.6L, Hematocrit 28.6L , Mean Corpuscular Volume 86.2, Mean Corpuscular Hemoglobin 25.9L, Mean Corpuscular Hemoglobin Concent 30.1L, Red Cell Distribution Width 16.4H, Platelet Count 322, Neutrophils (%) (Auto) 78.3H, Lymphocytes (%) (Auto) 16.2L, Monocytes (%) (Auto) 3.4, Eosinophils (%) (Auto) 0.7, Basophils (%) (Auto) 0.4, Neutrophils # (Auto) 6.0, Lymphocytes # (Auto) 1.3L, Monocytes # (Auto) 0.3, Eosinophils # (Auto) 0.0, Basophils # (Auto) 0.0, Large Unclassified Cells % 1.1 , Large Unclassified Cells # 0.1, Differential Slide Review Report, Differential Pathologist's Review ANEMIA / RBC MORPH, Platelet Estimate NORMAL, Hypochromasia 1+, Anisocytosis 1+, Peripheral Blood Smear Path Consult PERIPHERAL SMEAR, Erythrocyte Sedimentation Rate 54H, Absolute Reticulocyte Count 92H, Percent Reticulocyte Count 2.70H, Reticulocyte Hgb Content (CHr) 25.9 , Anion Gap 11, Glomerular Filtration Rate 41.7, Lactic Acid Level 3.6*H, Calcium Level 7.6L, Phosphorus Level 4.2, Magnesium Level 1.8, Iron Level 18L, Total Iron Binding Capacity 242L, Transferrin % Saturation 7.4L, Ferritin 33, Aspartate Amino Transf (AST/SGOT) 16, Alanine Aminotransferase (ALT/SGPT) 13, Alkaline Phosphatase 60, Total Bilirubin 0.2, Direct Bilirubin 0.1, Total Creatine Kinase 123, Creatine Kinase MB 8.6H, Creatine Kinase MB Relative Index 6.99H, Troponin I 0.25H, C-Reactive Protein, Quantitative 2.80H, Total Protein 6.3L, Albumin 2.4L, Albumin/Globulin Ratio 0.62L, Thyroid Stimulating Hormone ( TSH) 1.690, Free Thyroxine 1.19 01/27/17 22:57: Bedside Glucose (Misc Panel) 101 01/27/17 23:11: Prothrombin Time 14.5, Prothromb Time International Ratio 1.11, Activated Partial Thromboplast Time 36.4 01/27/17 23:12: Osmolality 297 01/28/17 00:16: Lactic Acid Level 2.1*H, Total Creatine Kinase 135, Creatine Kinase MB 8.7H, Creatine Kinase MB Relative Index 6.44H, Troponin I 0.24H, Digoxin Level 1.5 01/28/17 02:14: Urine Appearance CLEAR, Urine Color YELLOW, Urine pH 5.0, Urine Specific [place] 1.009, Urine Protein NEGATIVE, Urine Glucose (UA) NEGATIVE, Urine Ketones NEGATIVE, Urine Urobilinogen 0.2, Urine Bilirubin NEGATIVE, Urine Leukocyte Esterase NEGATIVE, Urine Blood NEGATIVE, Urine Nitrite NEGATIVE, Urine WBC (Auto) 0, Urine RBC (Auto) 0, Urine Hyaline Casts (Auto) 3, Urine Bacteria (Auto) NEGATIVE, Urine Squamous Epithelial Cells 0, Urine Mucus (Auto) SMALL, Urine Sperm (Auto) , Urine Random Osmolality 320L, Urine Random Creatinine 48.7 01/28/17 07:27: Bedside Glucose (Misc Panel) 128H 01/28/17 08:18: B-Type Natriuretic Peptide 562H CBC/BMP Laboratory Tests 01/27/17 17:57 Red Blood Count 3.32 L, Mean Corpuscular Volume 86.2, Mean Corpuscular Hemoglobin 25.9 L, Mean Corpuscular Hemoglobin Concent 30.1 L, Red Cell Distribution Width 16.4 H, Neutrophils (%) (Auto) 78.3 H, Lymphocytes (%) (Auto ) 16.2 L, Monocytes (%) (Auto) 3.4, Eosinophils (%) (Auto) 0.7, Basophils (%) ( Auto) 0.4, Neutrophils # (Auto) 6.0, Lymphocytes # (Auto) 1.3 L, Monocytes # ( Auto) 0.3, Eosinophils # (Auto) 0.0, Basophils # (Auto) 0.0 Microbiology Microbiology 01/27/17 Blood Culture, Received Pending 01/27/17 Blood Culture, Received Pending 01/28/17 Stool Occult Blood (RYAN) - Final, Complete 01/28/17 Gastrointestinal Tract Panel (PCR), Ordered Pending 01/28/17 Urine Culture, Received Pending Tod Quiroz RPA-C Jan 28, 2017 09:16
--- NOTE | 2017-01-28 09:41 | REP ---
Portable chest, 07:00 a.m., 01/28/2017, single AP view the patient semi upright: Comparison is 2016. Pacemaker and cardiomegaly are again identified, unchanged. There is thoracic scoliosis convex right, unchanged. Pulmonary vascular redistribution is again identified. There is increased radiodensity inferiorly on the right which could be a right pleural effusion or focal infiltrate or combination. There is an old right humeral neck fracture. Impression: Cardiomegaly and vascular redistribution. Pacemaker. New right infiltrate/effusion/combination. Signed by Juan Vigil MD 01/28/2017 07:42 A
[2017-01-28] MEDS: METOPROLOL TART 25 MG TABLET PO SCH ×2 (11:48→18:04)
[2017-01-28] MEDS ORDERED: VANCOMYCIN HCL 1,000 MG, VIAL MATE ADAPTER 1 EACH in D5W 250 ML IV SCH (12:00)
[2017-01-28] MEDS: APIXABAN 2.5 MG TAB (ELIQUIS) PO SCH (21:57)
[2017-01-29] VITALS (9 sets, daily range): BP systolic 90–103; BP diastolic 50–78
[2017-01-29] MEDS: METOPROLOL TART 25 MG TABLET PO SCH ×5 (00:17→23:51)
[2017-01-29 05:15] LABS: MEAN CORPUSCULAR HEMOGLOBIN 27.3 pg (27.0-33.0); MEAN CORPUSCULAR HGB CONC 31.1 g/dl (32.0-36.5); MEAN CORPUSCULAR VOLUME 87.9 fl (80.0-96.0); WHITE BLOOD COUNT 7.8 K/mm3 (4.0-10.0)
[2017-01-29 05:32] LABS: CALCIUM LEVEL 7.9 MG/DL (8.8-10.2); CREATININE FOR GFR 1.1 MG/DL (0.55-1.02)
[2017-01-29] MEDS: HumaLOG INSULIN (NovoLOG) PER UNIT SC SCH ×4 (07:30→20:39)
[2017-01-29] MEDS: IPRATROPIUM 0.5MG/ALBUTEROL 2.5MG INH SOL UD 3ML (DUONEB)(J7620) NEB SCH ×3 (07:50→23:09)
[2017-01-29] MEDS: LACTOBACILLUS ACIDOPHILUS CAP (BACID) PO SCH ×2 (09:16→21:03)
[2017-01-29] MEDS: GABAPENTIN 300 MG CAP PO SCH ×3 (09:16→21:03)
[2017-01-29] MEDS: ASPIRIN ENTERIC 325 MG TAB PO SCH (09:16)
[2017-01-29] MEDS: ASCORBIC ACID 500 MG TAB PO SCH (09:16)
[2017-01-29] MEDS: DOCUSATE SODIUM 100 MG CAP PO SCH ×2 (09:17→21:03)
[2017-01-29] MEDS: ATORVASTATIN 10 MG TAB PO SCH (09:17)
[2017-01-29] MEDS: oxyCODONE 40 MG CR TAB PO SCH ×2 (09:17→21:02)
[2017-01-29] MEDS: DULoxetine 30 MG CAP (CYMBALTA) PO SCH (09:17)
[2017-01-29] MEDS: THIAMINE 100 MG TAB PO SCH ×2 (09:18→21:02)
[2017-01-29] MEDS: OMEPRAZOLE 20 MG CAP PO SCH (09:18)
[2017-01-29] MEDS: MULTIVITAMINS/MINERALS THERAP 1 TAB PO SCH (09:18)
[2017-01-29] MEDS: APIXABAN 2.5 MG TAB (ELIQUIS) PO SCH ×2 (09:18→21:03)
[2017-01-29] MEDS: LORATADINE 10 MG TAB PO SCH (09:18)
--- NOTE | 2017-01-29 10:53 | PHACANCOPD ---
PHARMACY VANCOMYCIN DOSING Pt Demographics Demographics Patient Age:71 , Weight:62.300 , Gender: female Adjusted Body Weight Date: 01/28/17, Adjusted Body Weight: [NA] Kg Events Past 24 Hours Events Past 24 Hours: YES: Change in CrCl, NO: Dialysis, Diuretic Therapy, Fever, Elevation in WBC, Pending Diagnostics , Pending Procedures, Other Vancomycin Vancomycin indication: LE CELLULITIS Vancomycin Target Ranges: 10-20 mcg/ml Vancomycin Load Y/N: No Load Dose Date Time Vancomycin Load Dose: Date: Time: Vancomycin Dose Date: 01/29/17. Current Vancomycin Dose: [750mg IV Q12H @11] Date: 01/28/17. Current Vancomycin Dose: [1 GM IV Q24H] Intermittent Dosing?: No Labs Labs Item Value Date Time Creatinine 1.39 MG/DL H 01/28/17817 Creatinine 1.10 MG/DL H 01/29/17 0456 Creatinine 1.33 MG/DL H 01/27/17 1757 Item Value Date Time White Blood Count 8.8 K/mm3 01/28/17 0818 White Blood Count 7.8 K/mm3 01/29/17 0456 Vancomycin Level Trough 12.7 UG/ML 01/29/17 0932 Micro Microbiology 01/27/17 Blood Culture - Preliminary, Resulted No growth after 24 hours . All specim... 01/27/17 Blood Culture - Preliminary, Resulted No growth after 24 hours . All specim... 01/28/17 Stool Occult Blood (RYAN) - Final, Complete 01/28/17 Gastrointestinal Tract Panel (PCR), Ordered Pending 01/28/17 Urine Culture - Final, Complete Creatinine Clearance Date:01/29/17. Creatinine Clearance: [39 ml/min]. Date:01/28/17. Creatinine Clearance: [34.3].CALCULATED Assessment and Plan Maintaining Current Dose?: No Reason for dose change: Trough too low Pharmacist Note Pharmacist Note Date: 01/29/17. Pharmacist note: vanco trough was drawn ~2.5 hrs before the 3rd dose and came back at 12.7 mcg/ml. I have changed her dosing to 750mg IV q12h to start this morning. SCr has improved since admission. Based on previous consults (2013) she will likely need to be reduced back to 1g q24h but I will increase her dose for a couple days. Pt does not have a Hx of MRSA. All cultures have been NGTD, we will continue to monitor. Tyler Bowling Pharm.D. Jan 29, 2017 10:53
--- NOTE | 2017-01-29 11:09 | IPNPDOC ---
Subjective Date Seen The patient was seen on 01/29/17. Subjective Chief Complaint/HPI The patient is a 71-year-old female admitted with a reason for visit of A-Fib With Rapid Ventricular Response. Events since last encounter Rate controlled, in Afib. S/p evaluation by Dr. Mtz, no note in chart. States breathing slowly improving. Constitutional: Denies: Chills, Fever, Night Sweats ENT: Denies: Head Aches, Ear Pain, Dysphagia Skin: Denies: Rash, Lesions, Breakdown Pulmonary: Reports: Dyspnea, Cough Cardiovascular: Denies: Chest Pain, Palpitations, Orthopnea, Paroxysmal Noc. Dyspnea, Lt Headedness Gastrointestinal: Denies: Nausea, Vomiting, Abdominal Pain, Diarrhea, Constipation Genitourinary: Reports: Other Symptoms (Mendieta catheter), Denies: Dysuria, Frequency, Incontinence, Retention Psych: Reports: Mood Normal, Denies: Depression, Memory Issues Objective Physical Examination General Exam: Positive: Alert, No Acute Distress Neck Exam: Positive: Supple, Negative: JVD Chest Exam: Positive: Rales (LLL) Heart Exam: Positive: Rate Normal, Irregular Rhythm Telemetry: Positive: Atrial fibrillation Abdomen Exam: Positive: Normal bowel sounds, Soft, Negative: Tenderness Extremity Exam: Positive: Edema (1+ pitting edema L>R. B/L distal erythema.) Assessment /Plan Problems (1) Atrial fibrillation with rapid ventricular response Status: Acute Problem Specific Plan: Consult Specialist, Monitor Clinically, Repeat Labs Problem Text: 01/29/17: rate controlled. On PO Lopressor. BP softer. will monitor. transfer to Med surg. 01/28 - Cardiology consulted. Pt seen by Dr Mtz whom she follows with as outpt. Pt getting Lopressor 5 mg IV q6hrs. Did get Dig in ER. Not getting anticoagulation. Anemic with question of blood loss. Received 2 units PRBCs. AM Hgb pending. (2) CHF (congestive heart failure) Status: Acute Problem Specific Plan: Consult Specialist, Monitor Clinically, Repeat Labs Problem Text: 01/28 - Cardiology consulted. BNP 556. Received Lasix last night and earlier this AM between PRBC transfusions. BPs a little soft. (3) Elevated troponin Status: Acute Problem Specific Plan: Consult Specialist, Monitor Clinically, Repeat Labs Problem Text: 01/28 - Cardiology consulted. Trops 0.25/ 0.24/ Pending. (4) Cellulitis of both lower extremities Status: Acute Problem Specific Plan: Monitor Clinically, Repeat Labs Problem Text: 01/29/17: WBC stable. Erythema behing margins of marking 01/28 - Started on Vanco. Today's WBC pending. Doppler U/S: No evidence of DVT in the lower extremities bilaterally. 2 cm left Miller's cyst. (5) Anemia Status: Acute Problem Specific Plan: Monitor Clinically, Repeat Labs Problem Text: 01/29/17: hgb 10.7. monitor. OB negative. 01/28 - Pt received 2 units PRBCs. Today's CBC Pending. (6) Pleural effusion Status: Acute Problem Specific Plan: Monitor Clinically, Repeat Labs Problem Text: Possibly secondary to heart failure. (7) Diabetic foot ulcer Status: Acute Problem Specific Plan: Consult Specialist, Monitor Clinically, Repeat Labs Problem Text: 01/28 - Follows with Dr Aguilar/podiatry. Started on Vanco. (8) DM2 (diabetes mellitus, type 2) Status: Chronic Problem Specific Plan: Monitor Clinically, Repeat Labs Problem Text: SSI (9) Hyperlipidemia Status: Chronic Problem Specific Plan: Monitor Clinically, Repeat Labs Problem Text: Lipitor (10) ANGEL LUIS (acute kidney injury) Status: Acute Problem Specific Plan: Monitor Clinically, Repeat Labs Problem Text: 01/29/17: improved Cr. 1.10. baseline 0.7 01/28 - Today's labs pending. Plan/VTE VTE Prophylaxis Ordered?: No (order TEDs and SCDs) Plan/Urinary Catheter Reason for insertion/continuin: Critical Pt monitoring VS, I&O, [facility] Vital Signs/I&O Vital Signs Date Time Temp Pulse Resp B/P (MAP) Pulse Ox O2 Delivery O2 Flow Rate FiO2 01/29/17 09:17 89 20 01/29/17 06:40 92/53 01/29/17 06:30 94 NIPPV (BIPAP/CPAP) 3.0 01/29/17 04:00 98.0 I&O- Last 24 Hours up to 6 AM 01/29/17 05:59 Intake Total 1190 ml Output Total 915 ml Balance 275 ml Laboratory Data 24H LABS Laboratory Tests 2 01/28/17 11:33: Bedside Glucose (Misc Panel) 90 01/28/17 12:10: Total Creatine Kinase 119, Creatine Kinase MB 6.4H, Creatine Kinase MB Relative Index 5.37H, Troponin I 0.20H 01/28/17 17:24: Bedside Glucose (Misc Panel) 171H 01/28/17 21:51: Bedside Glucose (Misc Panel) 107 01/29/17 04:56: Anion Gap 7L, Glomerular Filtration Rate 52.0, Blood Urea Nitrogen 33H, Creatinine 1.10H, Sodium Level 140, Potassium Level 5.0, Chloride Level 108H, Carbon Dioxide Level 25, Calcium Level 7.9L 01/29/17 09:32: Vancomycin Level Trough 12.7 CBC/BMP Laboratory Tests 01/28/17 12:10 01/28/17 20:02 01/29/17 04:56 Red Blood Count 3.90 L, Mean Corpuscular Volume 87.9, Mean Corpuscular Hemoglobin 27.3, Mean Corpuscular Hemoglobin Concent 31.1 L, Red Cell Distribution Width 16.0 H, Calcium Level 7.9 L Microbiology Microbiology 01/27/17 Blood Culture - Preliminary, Resulted No growth after 24 hours . All specim... 01/27/17 Blood Culture - Preliminary, Resulted No growth after 24 hours . All specim... 01/28/17 Stool Occult Blood (RYAN) - Final, Complete 01/28/17 Gastrointestinal Tract Panel (PCR), Ordered Pending 01/28/17 Urine Culture - Final, Complete Tammi Evans CHEMIST [employer]ZYMES Jan 29, 2017 11:09
[2017-01-29] MEDS: VANCOMYCIN HCL 750 MG, VIAL MATE ADAPTER 1 EACH in D5W 250 ML IV SCH ×2 (12:24→23:48)
--- NOTE | 2017-01-29 13:07 | CR ---
DATE OF CONSULTATION: 01/29/2017 INDICATION: Atrial fibrillation with rapid ventricular response, mitral stenosis. HISTORY OF PRESENT ILLNESS: Dr. Harrell has asked me to see Mrs. Farah. She is a patient from my clinic even though I have not seen her now in several months. It turns out that she was visiting relatives in [place] and reports that in October had some form of cardiac event that led to prolonged hospitalization. Unfortunately, we do not have any records from this, but she was discharged home for medications that were not significantly altered compared to her chronic medications. She eventually returned to [facility] but came to our facility with several complaints. First of all she had swelling and redness of her legs and also had progressive dyspnea. On presentation, she was found to be in atrial fibrillation with rapid ventricular response. She was also quite short of breath. She received digoxin loading, but when I saw her first yesterday morning she was still quite tachycardic. She reports that her dyspnea is not that much different compared to her baseline. She denies any chest pain and she did not have any awareness of tachycardia. So far, there has not been any significant diuresis because her blood pressure remains low, but after she did receive the IV digoxin with additional use of metoprolol her heart rate has been reasonably well-controlled and is mostly in the 80s and 90s. Today she tells me that she is actually feeling quite well. PAST MEDICAL HISTORY: 1. Paroxysmal atrial fibrillation based on pacemaker interrogation it has been rare until very recently. 2. Known mitral stenosis. Last echocardiogram available to me was from December 2014 and revealed mean transmitral gradient 15 mmHg and calculated mitral valve area 1.5 cm square. There was also aortic sclerosis but no stenosis and at least mild pulmonary hypertension. Left ventricular systolic function is known to be preserved. 3. History of pacemaker placement in 2013 for complete heart block. She has a [employer] dual-chamber pacemaker. 4. History of chronic obstructive pulmonary disease (COPD). 5. Hypertension. 6. History of osteomyelitis. 7. Dyslipidemia. 8. Peripheral vascular disease. 9. Kyphoscoliosis. 10. Type 2 diabetes. SURGICAL HISTORY: 1. Positive for several amputations of digits on the left foot. 2. She has a history of pacemaker placement. OUTPATIENT MEDICATIONS: Include - Actos 15 - Advair Diskus - Ambien - aspirin - atenolol 50 a day - Atrovent - Cymbalta - furosemide 40 twice a day - gabapentin 300 four times a day - glipizide 10 mg twice a day - Lipitor 10 a day - metformin 1 gram twice a day - Nasonex - loratadine - omeprazole 40 a day - OxyContin 60 every 12 hours - pramipexole 0.25 twice a day - ProAir - Roxicet - Ventolin - Vasotec 10 a day - vitamin C - vitamin B1 FAMILY HISTORY: The patient's family history is positive for coronary artery disease (CAD). Her father and mother both had myocardial infarctions. 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 She lives with a roommate who is her significant other. She is . She smokes virtually every day about half a pack of cigarettes. REVIEW OF SYSTEMS: She denies any recent fever or chills, nausea, vomiting or diarrhea. She does not believe that there has been any significant weight change. There is no history of stroke. There is no history of known coronary artery disease. There are no syncopal events. She does report that in the last few days she has had diarrhea, abdominal pain and the day before admission she actually had nausea and vomiting. ALLERGIES: 1. She is allergic to AUGMENTIN. 2. PYRIDIUM. 3. MOBIC. 4. BIAXIN. PHYSICAL EXAMINATION: Ms. Farah is an elderly woman who appears chronically but not acutely ill. She actually looks older than her calendar age. Documented blood pressure 92/52, heart rate has been in 80s and 90s. She is afebrile. Saturation 94% on 3 liters of oxygen by nasal cannula. Weight is documented at 62.3 kg. Her fluid balance yesterday was slightly positive. She is alert and oriented and appropriate. 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 Lungs reveal bilateral crackles and rhonchi. Air movement is good. Heart exam reveals irregularly irregular rhythm. There is murmur over the aortic valve. I do not appreciate the mitral stenosis murmur even though it is difficult to position the patient. Abdomen is soft, somewhat distended. I do not appreciate any guarding. Extremities have bilateral edema. There is redness with cellulitic type of changes on both of her shins and there are wounds after amputations and ulcers on the left foot. LABORATORY DATA: Her CBC this morning reveals WBC count of 7.8, hemoglobin 10.7 , hematocrit 34, platelet count 297,000. Basic metabolic panel potassium 5.0, BUN 33, creatinine 1.1, GFR 52 and glucose 92. Her digoxin level yesterday was 1.5. Her chest x-ray is consistent with cardiomegaly, vascular distribution and small bilateral pleural effusions. She had a vascular ultrasound on both lower extremities that revealed no evidence for DVT. ECG on presentation revealed presence of atrial fibrillation with rapid ventricular response, a right bundle branch block and a possible old inferior wall NH and poor R-wave progression. Not significantly changed from before. ASSESSMENT/PLAN: Mrs. Farah is a 71-year-old female who has a multitude of medical problems as noted above. What is new is atrial fibrillation with rapid ventricular response. It is in the setting of at least moderate if not by now severe mitral stenosis. Surprisingly, even though she is quite hypotensive, the atrial fibrillation is relatively well tolerated. Because she has not been anticoagulated, I do not believe it is safe to pursue DC cardioversion. I started the patient on Eliquis just 2.5 mg twice a day as she is mildly anemic. If well tolerated, we can advance the dose to full dose. She is currently reasonably rate-controlled on combination of digoxin and metoprolol. If blood pressure allows, metoprolol dose can be further increased. Simultaneously, I would attempt to introduce small dose of diuretics, even though she is now relatively comfortable and her blood pressure is soft. I had a discussion with the patient whether she would consider mitral valve replacement and she is certainly leaning against this option even if the alternative should be a gradual decline. I will sign the patient off to Dr. Wilson who is covering the weekend. ESTHER
--- NOTE | 2017-01-29 21:22 | IPN ---
DATE OF SERVICE: 01/29/2017 TIME: Approximately 3:30 p.m. The patient seen today at bedside for evaluation of her lower extremities. Patient is well known by me. She was seen in my office and was feeling weak, nauseous, vomiting, was then sent to the emergency room for admission. ALLERGIES: AMOXICILLIN, CLARITHROMYCIN, CLAVULANIC ACID, MELOXICAM, NORFLOXACIN, QUINOLONES, PHENAZOPYRIDINE. HOME MEDICATIONS: - albuterol 2.5 mg inhalation every 6 hours as needed - ProAir two puffs every 4 hours - vitamin C one daily - aspirin 325 mg - atorvastatin 10 mg daily - docusate 100 mg twice a day - duloxetine 30 mg daily - enalapril 10 mg daily - Lasix 40 mg twice a day - gabapentin 300 mg twice a day, 600 mg at night - glipizide 10 mg twice a day - loratadine 10 mg daily - metformin 1000 mg twice a day - once a day multivitamin - naproxen 400 mg twice a day as needed for pain - omeprazole 40 mg twice a day - oxycodone 60 mg twice a day - pioglitazone 15 mg daily - Mirapex 0.2 mg twice a day - silver sulfadiazine to ulcers twice a day - zolpidem 10 mg nightly - thiamine 100 mg twice a day PAST MEDICAL HISTORY: 1. Type 2 diabetes. 2. Hyperlipidemia. 3. Sclerosis. 4. Chronic diabetic foot ulcers. 5. Pacemaker due to high-degree arterioventricular (AV) block. 6. Atrial fibrillation. 7. History of falls. 8. Mitral stenosis. 9. Insomnia. PAST SURGICAL HISTORY: 1. Multiple digital amputations. 2. Pacemaker placement. 3. Cataract repair. EXAMINATION: Of the patient's foot revealed an ulceration over the lateral aspect of the fifth metatarsal of the left foot and the medial malleolar region of the right foot. This medial malleolar region is red and infected. Utilizing a sterile curette, the wound was cultured for and sent to mycobacteriology for aerobic and anaerobic examination. Her wound care orders are for foam dressings, change every 3 days as needed. Her antibiotics can be tailored according to her culture and sensitivity. She is being presently treated empirically with vancomycin. When her cultures are available and she is discharged, she could be placed on oral medication according to her culture and sensitivity. We did discuss with the patient when on discharge that she should see me in the office a few days after discharge. Her questions are answered. Thank you for this consultation.
[2017-01-30] MEDS: METOPROLOL TART 25 MG TABLET PO SCH ×3 (05:55→17:14)
[2017-01-30 06:00] VITALS: BP 103/71
[2017-01-30 07:31] LABS: MEAN CORPUSCULAR HEMOGLOBIN 27.1 pg (27.0-33.0); MEAN CORPUSCULAR HGB CONC 30.6 g/dl (32.0-36.5); MEAN CORPUSCULAR VOLUME 88.5 fl (80.0-96.0); RED CELL DISTRIBUTION WIDTH 16.1 % (11.5-14.5); WHITE BLOOD COUNT 7.9 K/mm3 (4.0-10.0)
[2017-01-30] MEDS: APIXABAN 2.5 MG TAB (ELIQUIS) PO SCH ×2 (08:13→20:56)
[2017-01-30] MEDS: ATORVASTATIN 10 MG TAB PO SCH (08:14)
[2017-01-30] MEDS: DULoxetine 30 MG CAP (CYMBALTA) PO SCH (08:14)
[2017-01-30] MEDS: OMEPRAZOLE 20 MG CAP PO SCH (08:14)
[2017-01-30] MEDS: LORATADINE 10 MG TAB PO SCH (08:14)
[2017-01-30] MEDS: GABAPENTIN 300 MG CAP PO SCH ×3 (08:15→20:56)
[2017-01-30] MEDS: THIAMINE 100 MG TAB PO SCH ×2 (08:15→20:56)
[2017-01-30] MEDS: ASPIRIN ENTERIC 325 MG TAB PO SCH (08:15)
[2017-01-30] MEDS: MULTIVITAMINS/MINERALS THERAP 1 TAB PO SCH (08:16)
[2017-01-30] MEDS: LACTOBACILLUS ACIDOPHILUS CAP (BACID) PO SCH ×2 (08:16→20:54)
[2017-01-30] MEDS: DOCUSATE SODIUM 100 MG CAP PO SCH ×2 (08:16→20:56)
[2017-01-30] MEDS: ASCORBIC ACID 500 MG TAB PO SCH (08:16)
[2017-01-30] MEDS: oxyCODONE 40 MG CR TAB PO SCH ×2 (08:17→20:56)
[2017-01-30] MEDS: HumaLOG INSULIN (NovoLOG) PER UNIT SC SCH ×4 (08:18→20:51)
[2017-01-30] MEDS: IPRATROPIUM 0.5MG/ALBUTEROL 2.5MG INH SOL UD 3ML (DUONEB)(J7620) NEB SCH ×2 (08:28→16:00)
[2017-01-30 09:44] LABS: ANION GAP 7 MEQ/L (8-16); BLOOD UREA NITROGEN 31 MG/DL (7-18); CALCIUM LEVEL 7.7 MG/DL (8.8-10.2); CARBON DIOXIDE LEVEL 25 MEQ/L (21-32); CHLORIDE LEVEL 106 MEQ/L (98-107); CREATININE FOR GFR 0.93 MG/DL (0.55-1.02); GLOMERULAR FILTRATION RATE > 60.0 (>39); GLUCOSE, FASTING 129 MG/DL (83-110); POTASSIUM SERUM 4.6 MEQ/L (3.5-5.1); SODIUM LEVEL 138 MEQ/L (136-145)
[2017-01-30] MEDS: VANCOMYCIN HCL 750 MG, VIAL MATE ADAPTER 1 EACH in D5W 250 ML IV SCH (11:28)
[2017-01-30] MEDS ORDERED: ONDANSETRON 4MG/2ML VIAL (J2405) IV PRN (11:30)
--- NOTE | 2017-01-30 12:26 | IPN ---
DATE: 01/30/2017 Mrs. Claudia Farah was seen this morning. She was sitting in a chair in no acute distress at rest. She stated that she feels much better. She denies any palpitations or chest pain. Her pedal edema has improved. She denies any cough. There is no report of bleeding. She came to the hospital on 01/27/2017 with atrial fibrillation with rapid ventricular rate, anemia, pedal edema, and possible cellulitis of the lower extremities. She was transfused 1 unit of packed red blood cells and her cardiac medications were adjusted. Her condition has improved and she was transferred to medical floor for further management. PHYSICAL EXAMINATION: The patient is alert and oriented. In no acute distress at rest. Her vital signs this morning reveal a blood pressure of 103/71 with a pulse of 92, respirations 18, and a maximum temperature is 97.7 degrees Fahrenheit with an oxygen saturation of 93% on room air. PHYSICAL EXAMINATION: Examination of the head is normocephalic, atraumatic. NECK: Supple. I could not appreciate any carotid bruits or jugular venous distention (JVD) while sitting. LUNGS: Reveal minimal crackles at the bases. HEART EXAMINATION: Irregularly irregular heart sounds without gallops. The point of maximum impulse (PMI) is not displaced. There is no rub. There is a systolic murmur over the pericardium at the base of the aorta/aortic valve area. ABDOMEN: Soft and nontender. EXTREMITIES: Reveal +1 bilateral lower leg edema. NEUROLOGIC EXAMINATION: Negative for focal deficits. LABORATORY DATA: BMP done today revealed a sodium of 138, potassium 4.6, chloride 106, CO2 of 25, BUN 31, creatinine 0.93, GFR more than 60, fasting glucose 129, calcium 7.7. CBC revealed a WBC of 7.9, hemoglobin 11.0, hematocrit 35.9, and platelets 276,000. IMPRESSION: 1. Atrial fibrillation and that seems to be under control with the short acting beta tanya and she will continue the same. She does have a history of mitral stenosis. She might not be able to tolerate rapid heart well. She had an echocardiogram done and it is being reviewed. She is currently on Eliquis, small dose. She is also on aspirin. Depending on the severity of the mitral stenosis, she might not be a candidate for Eliquis but Coumadin. 2. Congestive heart failure (CHF). She seems to be stable. Her condition has improved. She will continue with the beta tanya. I have noticed that she is not currently on diuretics and she will be started on furosemide. We shall keep her on a negative fluid balance and monitor closely her BUN, creatinine and serum potassium. 3. Mitral stenosis. The patient had an echocardiogram done and it is being reviewed. We will check her EKG and in view of her underlying atrial fibrillation, she needs good control of her ventricular heart rate. She might benefit from Digoxin. She has received it in the past, but currently I do not see that on her medication list. 4. Cellulitis of the lower extremities. Being addressed and this seems to have improved. 5. History of anemia. Status post transfusion of 1 unit of packed red blood cells. 6. Diabetes mellitus, being addressed. 7. Hyperlipidemia. On a statin with atorvastatin. It was a pleasure to participate in the care of Mrs. Claudia Farah for her underlying cardiac condition. I will continue to monitor her for you over the weekend. She appears to be stable. Please do not hesitate to call if there are any questions. ESTHER
--- NOTE | 2017-01-30 13:10 | IPNPDOC ---
Subjective Date Seen The patient was seen on 01/30/17. Subjective Chief Complaint/HPI The patient is a 71-year-old female admitted with a reason for visit of A-Fib With Rapid Ventricular Response. Events since last encounter Patient states she feels much better today. Breathing well. Denies chest pain or pressure, fevers or chills, or pain. Constitutional: Denies: Chills, Fever, Malaise Pulmonary: Denies: Dyspnea, Cough Cardiovascular: Denies: Chest Pain, Palpitations Other systems 10-pt ROS otherwise negative Objective Physical Examination General Exam: Positive: Alert, No Acute Distress Neck Exam: Positive: Supple, Negative: JVD Chest Exam: Positive: Rales (LLL) Heart Exam: Positive: Rate Normal, Irregular Rhythm, Murmurs (3/6 NICK) Telemetry: Positive: Atrial fibrillation Abdomen Exam: Positive: Normal bowel sounds, Soft, Negative: Tenderness Extremity Exam: Positive: Edema (1+ pitting edema L>R. B/L distal erythema.) Assessment /Plan Problems (1) Atrial fibrillation with rapid ventricular response Status: Acute Problem Specific Plan: Consult Specialist, Monitor Clinically, Repeat Labs Problem Text: 01/30/17: rate controlled. On PO Lopressor. Cardiology following. If continues to be stable, will plan on d/c 01/31/17 01/29/17: rate controlled. On PO Lopressor. BP softer. will monitor. transfer to Med surg. 01/28 - Cardiology consulted. Pt seen by Dr Mtz whom she follows with as outpt. Pt getting Lopressor 5 mg IV q6hrs. Did get Dig in ER. Not getting anticoagulation. Anemic with question of blood loss. Received 2 units PRBCs. AM Hgb pending. (2) CHF (congestive heart failure) Status: Acute Problem Specific Plan: Consult Specialist, Monitor Clinically, Repeat Labs Problem Text: 01/30: BPs stable. Severe mitral stenosis, so pre-load dependent. Cardiology following. 01/28 - Cardiology consulted. BNP 556. Received Lasix last night and earlier this AM between PRBC transfusions. BPs a little soft. (3) Elevated troponin Status: Acute Problem Specific Plan: Consult Specialist, Monitor Clinically, Repeat Labs Problem Text: 01/30: Stable low elevation in troponins. No current sx. No CKD. 01/28 - Cardiology consulted. Trops 0.25/ 0.24/ Pending. (4) Cellulitis of both lower extremities Status: Acute Problem Specific Plan: Monitor Clinically, Repeat Labs Problem Text: 01/30: No documented fever or white count. More likely due to stasis dermatitis, but pt was started on vanc. Improving. Transition to PO. 01/29/17: WBC stable. Erythema behing margins of marking 01/28 - Started on Vanco. Today's WBC pending. Doppler U/S: No evidence of DVT in the lower extremities bilaterally. 2 cm left Miller's cyst. (5) Anemia Status: Acute Problem Specific Plan: Monitor Clinically, Repeat Labs Problem Text: 01/29/17: hgb 10.7. monitor. OB negative. 01/28 - Pt received 2 units PRBCs. Today's CBC Pending. (6) Pleural effusion Status: Acute Problem Specific Plan: Monitor Clinically, Repeat Labs Problem Text: Likely secondary to heart failure. (7) Diabetic foot ulcer Status: Acute Problem Specific Plan: Consult Specialist, Monitor Clinically, Repeat Labs Problem Text: 01/30: transitioned to PO doxycycline 01/28 - Follows with Dr Aguilar/podiatry. Started on Vanco. (8) DM2 (diabetes mellitus, type 2) Status: Chronic Problem Specific Plan: Monitor Clinically, Repeat Labs Problem Text: SSI (9) Hyperlipidemia Status: Chronic Problem Specific Plan: Monitor Clinically, Repeat Labs Problem Text: Lipitor (10) ANGEL LUIS (acute kidney injury) Status: Acute Problem Specific Plan: Monitor Clinically, Repeat Labs Problem Text: 01/29/17: improved Cr. 1.10. baseline 0.7 01/28 - Today's labs pending. Plan/VTE VTE Prophylaxis Ordered?: No (order TEDs and SCDs) Plan/Urinary Catheter Reason for insertion/continuin: Critical Pt monitoring VS, I&O, 24H, Fishbone Vital Signs/I&O Vital Signs Date Time Temp Pulse Resp B/P (MAP) Pulse Ox O2 Delivery O2 Flow Rate FiO2 01/30/17 11:28 83 121/58 01/30/17 08:17 20 01/30/17 06:00 97.7 93 Room Air 01/29/17 08:00 2.0 I&O- Last 24 Hours up to 6 AM 01/30/17 06:00 Intake Total 1235 ml Output Total 900 ml Balance 335 ml Laboratory Data 24H LABS Laboratory Tests 2 01/29/17 16:50: Bedside Glucose (Misc Panel) 130H 01/29/17 20:18: Bedside Glucose (Misc Panel) 183H 01/29/17 21:07: Urine Appearance HAZY, Urine Color YELLOW, Urine pH 5.0, Urine Specific [place] 1.015, Urine Protein 1+H, Urine Glucose (UA) NEGATIVE, Urine Ketones NEGATIVE, Urine Urobilinogen 0.2, Urine Bilirubin NEGATIVE, Urine Leukocyte Esterase 1+H, Urine Blood 2+H, Urine Nitrite NEGATIVE, Urine WBC (Auto) 16H, Urine RBC (Auto) 108H, Urine Hyaline Casts (Auto) 0, Urine Bacteria (Auto) 1+H, Urine Squamous Epithelial Cells 0, Urine Mucus (Auto) SMALL, Urine Sperm (Auto) 01/30/17 06:45: Bedside Glucose (Misc Panel) 135H 01/30/17 07:19: Anion Gap 7L, Glomerular Filtration Rate > 60.0, Blood Urea Nitrogen 31H, Creatinine 0.93, Sodium Level 138, Potassium Level 4.6, Chloride Level 106, Carbon Dioxide Level 25, Calcium Level 7.7L CBC/BMP Laboratory Tests 01/30/17 07:19 Red Blood Count 4.06, Mean Corpuscular Volume 88.5, Mean Corpuscular Hemoglobin 27.1, Mean Corpuscular Hemoglobin Concent 30.6 L, Red Cell Distribution Width 16.1 H, Calcium Level 7.7 L Microbiology Microbiology 01/27/17 Blood Culture - Preliminary, Resulted No Growth after 48 hours. All Specime... 01/27/17 Blood Culture - Preliminary, Resulted No Growth after 48 hours. All Specime... 01/28/17 Stool Occult Blood (RYAN) - Final, Complete 01/28/17 Gastrointestinal Tract Panel (PCR), Ordered Pending 01/28/17 Urine Culture - Final, Complete 01/29/17 Gram Stain - Final, Resulted 01/29/17 Wound Culture, Resulted Pending 01/29/17 Anaerobic Culture, Resulted Pending MARLENE ORDOÑEZ MD Jan 30, 2017 13:10
--- NOTE | 2017-01-30 13:35 | ECHO ---
DATE OF PROCEDURE: 01/28/2017 DATE OF : 1945 AGE: 71 REFERRING PROVIDER: Dr. Zackary Lorenz PATIENT LOCATION: Room 3205 REASON FOR THE ECHOCARDIOGRAM: Atrial fibrillation. 2D MEASUREMENTS: IVS: 1.3 cm LV: 3.7 cm LVPW: 1.4 cm IVC: 2.3 cm Peak gradient across the aortic valve was less than 10 mmHg. Mean gradient across the mitral valve: 7 mmHg. Maximum tricuspid valve velocity: 3.4 m/s 2D COMMENTS: 1. Mildly increased left ventricular wall thickness with normal left ventricular size, but moderately depressed global left ventricular systolic function. There appeared to be mild global hypokinesis. The estimated left ventricular systolic ejection fraction is 35 to 40%. 2. The left atrium subjectively appeared to be mildly enlarged as well as the right atrium. Normal right ventricle. 3. The atrial septum appeared to be normal without evidence of defect or shunt. 4. Normal aortic root. 5. Small pericardial effusion noted, no evidence of cardiac tamponade. Pleural effusion also noted. 6. Mildly to moderately calcified aortic valve, leaflet excursion may be minimally restricted. At least moderately calcified mitral annulus. The anterior mitral valve leaflet motion was not well visualized. Normal tricuspid valve. The pulmonic valve and proximal pulmonary artery branches were not well visualized. 7. The inferior vena cava was mildly enlarged, central venous pressure is most likely elevated. DOPPLER: Severe tricuspid regurgitation detected. The calculated pulmonary artery systolic pressure varied between 50 to 60 mmHg. Assessment of the left ventricular diastolic function was limited in view of the underlying atrial fibrillation. IMPRESSION: 1. Moderately depressed global left ventricular systolic function with preserved left ventricular wall thickness. 2. Aortic valve sclerosis without any significant stenosis or aortic regurgitation. 3. Mitral annulus calcification with mildly enlarged left atrium and probably mild to moderate calcific mitral stenosis. Could not rule out more severe mitral stenosis. No significant mitral regurgitation detected. 4. Severe tricuspid regurgitation with moderate to severe pulmonary hypertension. The right atrium appeared to be mildly enlarged. 5. Pacemaker wire artifact noted in the right heart chambers. 6. The inferior vena cava was dilated, central venous pressure is most likely elevated. MTDD
[2017-01-30 14:00] VITALS: BP 121/59
[2017-01-30] MEDS: FUROSEMIDE 20 MG/2 ML VIAL (J1940) IV SCH (14:04)
[2017-01-30] MEDS: DOXYCYCLINE HYCLATE 100 MG TAB PO SCH (20:56)
[2017-01-30 22:00] VITALS: BP 119/71
[2017-01-31] MEDS: METOPROLOL TART 25 MG TABLET PO SCH ×4 (00:40→17:05)
[2017-01-31 06:00] VITALS: BP 130/87
[2017-01-31 07:11] LABS: MEAN CORPUSCULAR HGB CONC 30.7 g/dl (32.0-36.5); MEAN CORPUSCULAR VOLUME 88.1 fl (80.0-96.0); RED CELL DISTRIBUTION WIDTH 16.2 % (11.5-14.5); WHITE BLOOD COUNT 10.2 K/mm3 (4.0-10.0)
[2017-01-31] MEDS: HumaLOG INSULIN (NovoLOG) PER UNIT SC SCH ×4 (07:30→21:00)
[2017-01-31 07:39] LABS: ANION GAP 9 MEQ/L (8-16); BLOOD UREA NITROGEN 24 MG/DL (7-18); CALCIUM LEVEL 8.2 MG/DL (8.8-10.2); CARBON DIOXIDE LEVEL 26 MEQ/L (21-32); CHLORIDE LEVEL 107 MEQ/L (98-107); CREATININE FOR GFR 0.74 MG/DL (0.55-1.02); GLOMERULAR FILTRATION RATE > 60.0 (>39); GLUCOSE, FASTING 76 MG/DL (83-110); POTASSIUM SERUM 4.3 MEQ/L (3.5-5.1); SODIUM LEVEL 142 MEQ/L (136-145)
[2017-01-31] MEDS: IPRATROPIUM 0.5MG/ALBUTEROL 2.5MG INH SOL UD 3ML (DUONEB)(J7620) NEB SCH ×2 (08:24)
[2017-01-31] MEDS: ATORVASTATIN 10 MG TAB PO SCH (08:43)
[2017-01-31] MEDS: THIAMINE 100 MG TAB PO SCH ×2 (08:43→20:40)
[2017-01-31] MEDS: oxyCODONE 40 MG CR TAB PO SCH ×2 (08:43→20:42)
[2017-01-31] MEDS: LORATADINE 10 MG TAB PO SCH (08:44)
[2017-01-31] MEDS: DOCUSATE SODIUM 100 MG CAP PO SCH ×2 (08:44→20:40)
[2017-01-31] MEDS: LACTOBACILLUS ACIDOPHILUS CAP (BACID) PO SCH ×2 (08:44→20:40)
[2017-01-31] MEDS: DULoxetine 30 MG CAP (CYMBALTA) PO SCH (08:44)
[2017-01-31] MEDS: OMEPRAZOLE 20 MG CAP PO SCH (08:45)
[2017-01-31] MEDS: APIXABAN 2.5 MG TAB (ELIQUIS) PO SCH ×2 (08:45→20:41)
[2017-01-31] MEDS: MULTIVITAMINS/MINERALS THERAP 1 TAB PO SCH (08:45)
[2017-01-31] MEDS: DOXYCYCLINE HYCLATE 100 MG TAB PO SCH ×2 (08:45→20:41)
[2017-01-31] MEDS: GABAPENTIN 300 MG CAP PO SCH ×3 (08:46→20:41)
[2017-01-31] MEDS: ASPIRIN ENTERIC 325 MG TAB PO SCH (08:46)
[2017-01-31] MEDS: ASCORBIC ACID 500 MG TAB PO SCH (08:46)
[2017-01-31] MEDS: FUROSEMIDE 20 MG/2 ML VIAL (J1940) IV SCH (08:47)
--- NOTE | 2017-01-31 12:13 | IPNPDOC ---
Subjective Date Seen The patient was seen on 01/31/17. Subjective Chief Complaint/HPI The patient is a 71-year-old female admitted with a reason for visit of A-Fib With Rapid Ventricular Response. Events since last encounter Patient states she is feeling well today. Denies shortness of breath or wheezing. Denies fevers, chills, or sweats. Constitutional: Denies: Chills, Fever Pulmonary: Denies: Dyspnea, Cough Cardiovascular: Denies: Chest Pain, Palpitations Other systems 10 point review systems otherwise negative Objective Physical Examination General Exam: Positive: Alert, No Acute Distress Neck Exam: Positive: Supple, Negative: JVD Chest Exam: Positive: Rales (LLL) Heart Exam: Positive: Rate Normal, Irregular Rhythm, Murmurs (3/6 NICK) Telemetry: Positive: Atrial fibrillation Abdomen Exam: Positive: Normal bowel sounds, Soft, Negative: Tenderness Extremity Exam: Positive: Edema (1+ pitting edema L>R. B/L distal erythema.) Assessment /Plan Problems (1) CHF (congestive heart failure) Status: Acute Problem Specific Plan: Consult Specialist, Monitor Clinically, Repeat Labs Problem Text: 01/31: BPs stable. Echo shows mod-severe mitral stenosis and severe tricuspid regurg, so pre-load dependent. Cardiology started low dose lasix. EF 30-35%, so could consider TAE, but in the setting of severe valvular heart disease, will defer to cardiology. Fluid balance net negative ~2100 mL over the last 2 days. - monitor on lasix; wt stable - followup cardiology recs; may be getting close to d/c however continues to have rales on exam 01/30: BPs stable. Severe mitral stenosis, so pre-load dependent. Cardiology consulted. 01/28 - Cardiology consulted. BNP 556. Received Lasix last night and earlier this AM between PRBC transfusions. BPs a little soft. (2) Atrial fibrillation with rapid ventricular response Status: Acute Problem Specific Plan: Consult Specialist, Monitor Clinically, Repeat Labs Problem Text: 01/31: Rate controlled. On PO Lopressor. 01/30/17: rate controlled. On PO Lopressor. Cardiology following. 01/29/17: rate controlled. On PO Lopressor. BP softer. will monitor. transfer to Med surg. 01/28 - Cardiology consulted. Pt seen by Dr Mtz whom she follows with as outpt. Pt getting Lopressor 5 mg IV q6hrs. Did get Dig in ER. Not getting anticoagulation. Anemic with question of blood loss. Received 2 units PRBCs. AM Hgb pending. (3) Elevated troponin Status: Acute Problem Specific Plan: Consult Specialist, Monitor Clinically, Repeat Labs Problem Text: 01/30: Stable low elevation in troponins. No current sx. No CKD. Likely secondary to CHF; EF 30-35% 01/30: Stable low elevation in troponins. No current sx. No CKD. 01/28 - Cardiology consulted. Trops 0.25/ 0.24/ Pending. (4) Cellulitis of both lower extremities Status: Acute Problem Specific Plan: Monitor Clinically, Repeat Labs Problem Text: 01/30: No documented fever or white count. More likely due to stasis dermatitis, but pt was started on vanc, pos due to diabetic foot wound. Improving. Transition to PO. 01/29/17: WBC stable. Erythema behing margins of marking 01/28 - Started on Vanco. Today's WBC pending. Doppler U/S: No evidence of DVT in the lower extremities bilaterally. 2 cm left Miller's cyst. (5) Anemia Status: Acute Problem Specific Plan: Monitor Clinically, Repeat Labs Problem Text: 01/29/17: hgb 10.7. monitor. OB negative. 01/28 - Pt received 2 units PRBCs. Today's CBC Pending. (6) Pleural effusion Status: Acute Problem Specific Plan: Monitor Clinically, Repeat Labs Problem Text: Likely secondary to heart failure. (7) Diabetic foot ulcer Status: Acute Problem Specific Plan: Consult Specialist, Monitor Clinically, Repeat Labs Problem Text: 01/31: Continues to do well on by mouth doxycycline day 1 01/30: transitioned to PO doxycycline 01/28 - Follows with Dr Aguilar/podiatry. Started on Vanco. (8) DM2 (diabetes mellitus, type 2) Status: Chronic Problem Specific Plan: Monitor Clinically, Repeat Labs Problem Text: SSI (9) Hyperlipidemia Status: Chronic Problem Specific Plan: Monitor Clinically, Repeat Labs Problem Text: Lipitor (10) ANGEL LUIS (acute kidney injury) Status: Resolved Problem Specific Plan: Monitor Clinically, Repeat Labs Problem Text: 01/31: ANGEL LUIS resolved 01/29/17: improved Cr. 1.10. baseline 0.7 01/28 - Today's labs pending. Plan/VTE VTE Prophylaxis Ordered?: No (order TEDs and SCDs) Plan/Urinary Catheter Reason for insertion/continuin: Critical Pt monitoring Disposition Pending stable fluid balance and titration of cardiac meds by cardiology VS, I&O, 24H, Fishbone Vital Signs/I&O Vital Signs Date Time Temp Pulse Resp B/P (MAP) Pulse Ox O2 Delivery O2 Flow Rate FiO2 01/31/17 09:00 Room Air 2.0 01/31/17 08:43 18 01/31/17 06:00 98.0 86 130/87 (101) 96 I&O- Last 24 Hours up to 6 AM 01/31/17 06:00 Intake Total 900 ml Output Total 1825 ml Balance -925 ml Laboratory Data 24H LABS Laboratory Tests 2 01/30/17 13:27: Bedside Glucose (Misc Panel) 280H 01/30/17 16:41: Bedside Glucose (Misc Panel) 178H 01/30/17 20:27: Bedside Glucose (Misc Panel) 132H 01/31/17 06:09: Bedside Glucose (Misc Panel) 76L 01/31/17 06:45: Anion Gap 9, Glomerular Filtration Rate > 60.0, Blood Urea Nitrogen 24H, Creatinine 0.74, Sodium Level 142, Potassium Level 4.3, Chloride Level 107, Carbon Dioxide Level 26, Calcium Level 8.2L 01/31/17 11:24: Bedside Glucose (Misc Panel) 222H CBC/BMP Laboratory Tests 01/31/17 06:45 Red Blood Count 4.50, Mean Corpuscular Volume 88.1, Mean Corpuscular Hemoglobin 27.0, Mean Corpuscular Hemoglobin Concent 30.7 L, Red Cell Distribution Width 16.2 H, Calcium Level 8.2 L Microbiology Microbiology 01/27/17 Blood Culture - Preliminary, Resulted No Growth after 72 hours. All specime... 01/27/17 Blood Culture - Preliminary, Resulted No Growth after 72 hours. All specime... 01/28/17 Stool Occult Blood (RYAN) - Final, Complete 01/28/17 Gastrointestinal Tract Panel (PCR), Ordered Pending 01/28/17 Urine Culture - Final, Complete 01/29/17 Gram Stain - Final, Complete 01/29/17 Wound Culture - Final, Complete 01/29/17 Anaerobic Culture - Final, Complete MARLENE ORDOÑEZ MD Jan 31, 2017 12:13
[2017-01-31 14:00] VITALS: BP 132/60
[2017-01-31 22:00] VITALS: BP 134/69
--- NOTE | 2017-01-31 23:44 | IPN ---
DATE OF SERVICE: 01/31/2017 Mrs. Claudia Farah was seen earlier this morning, she was supine in bed in no acute distress at rest. She stated she feels good. There was no orthopnea or paroxysmal nocturnal dyspnea (PND). There is no report of palpitations, dizziness. There is no report of bleeding. She was not coughing. Earlier this morning, for breakfast, she was sitting for breakfast, but at this present time, she wants to take a nap. PHYSICAL EXAMINATION: Patient is alert and oriented, in no acute distress at rest and is very pleasant. Her vital signs when I saw her revealed a blood pressure of 130/87 with a pulse of 86, respirations 20, and a maximum temperature was 98 degrees Fahrenheit with an oxygen saturation of 96% on room air. Examination of the head is normocephalic, atraumatic. Neck is supple. No carotid bruits. The lungs reveal minimal crackles at the bases. The heart examination revealed irregularly irregular heart sounds without gallops. The point of maximum impulse (PMI) is not displaced. There is no rub. There is a systolic murmur grade 2/6 over the pericardium at the base of the heart with minimal radiation to the neck. Abdomen is soft. Extremities revealed +1 bilateral lower leg edema, more on the left lower extremity than the right. Neurological examination grossly negative for any focal deficit. LABORATORY DATA: BMP done today 01/31/2017 revealed a sodium of 142, potassium 4.3, chloride 107, CO2 26, BUN 24, creatinine 0.74, GFR more than 60, fasting glucose 76, and calcium 8.2. CBC revealed a WBC of 10.2, hemoglobin 12.1, hematocrit 39.6, and platelets 280,000. IMPRESSION: 1. Mrs. Claudia Farah seems to be stable from a cardiac point of view. Yesterday, she was restarted on her Lasix and furosemide and she was in negative fluid balance of about 1 liter. She will continue current medications and Dr. Mtz will decide whether to restart the digoxin or not when he sees her tomorrow, 02/01/2017. She has a history of atrial fibrillation, she is currently on small dose of Eliquis. Her echocardiogram was reviewed yesterday and it revealed a moderately depressed global left ventricular systolic function, but only mild to moderate mitral stenosis. This will need to be reassessed in the future. There was no significant aortic stenosis or aortic regurgitation. 2. Cellulitis of the lower extremities, being addressed and this seems to have improved. 3. History of diabetes mellitus and hyperlipidemia. MTDD
--- NOTE | 2017-01-31 23:59 | ECGEPIP ---
Stationary ECG Study [facility] Test Date: 2017-01-31 Pat Name: MIAH FAROOQ Department: Room: [place] [address] Gender: F [employer]: [id number] : 1945 Requested By: MYRIAM LOJA Order Number: [id number] Reading MD: Myriam Loja Measurements Intervals [place] Rate: 71 P: VT: 0 QRS: -70 QRSD: 164 T: 6 QT: 414 QTc: 453 Interpretive Statements ELECTRONIC VENTRICULAR PACEMAKER UNDERLYING RHYTHM IS ATRIAL FIBRILLATION ABNORMAL RHYTHM ECG HEART RATE IS NOW SLOWER, LAST TRACING ON 01/27/17 AT 19:44:32 Electronically Signed On 01-31-2017 23:58:58 EDT by Myriam Loja
[2017-02-01] MEDS: METOPROLOL TART 25 MG TABLET PO SCH ×3 (00:51→12:38)
[2017-02-01 06:00] VITALS: BP 117/71
[2017-02-01 07:01] LABS: MEAN CORPUSCULAR HEMOGLOBIN 27.3 pg (27.0-33.0); MEAN CORPUSCULAR HGB CONC 31.8 g/dl (32.0-36.5); MEAN CORPUSCULAR VOLUME 85.8 fl (80.0-96.0); WHITE BLOOD COUNT 8.5 K/mm3 (4.0-10.0)
[2017-02-01 07:20] LABS: ANION GAP 7 MEQ/L (8-16); BLOOD UREA NITROGEN 17 MG/DL (7-18); CALCIUM LEVEL 8.5 MG/DL (8.8-10.2); CARBON DIOXIDE LEVEL 28 MEQ/L (21-32); CHLORIDE LEVEL 105 MEQ/L (98-107); CREATININE FOR GFR 0.71 MG/DL (0.55-1.02); GLOMERULAR FILTRATION RATE > 60.0 (>39); GLUCOSE, FASTING 126 MG/DL (83-110); POTASSIUM SERUM 4.2 MEQ/L (3.5-5.1); SODIUM LEVEL 140 MEQ/L (136-145)
[2017-02-01] MEDS: IPRATROPIUM 0.5MG/ALBUTEROL 2.5MG INH SOL UD 3ML (DUONEB)(J7620) NEB SCH ×4 (07:41→23:51)
[2017-02-01] MEDS: HumaLOG INSULIN (NovoLOG) PER UNIT SC SCH ×4 (08:36→21:00)
[2017-02-01] MEDS: ASPIRIN ENTERIC 325 MG TAB PO SCH (08:39)
[2017-02-01] MEDS: ATORVASTATIN 10 MG TAB PO SCH (08:39)
[2017-02-01] MEDS: oxyCODONE 40 MG CR TAB PO SCH ×2 (08:39→20:12)
[2017-02-01] MEDS: LACTOBACILLUS ACIDOPHILUS CAP (BACID) PO SCH ×2 (08:39→20:02)
[2017-02-01] MEDS: GABAPENTIN 300 MG CAP PO SCH ×3 (08:39→20:02)
[2017-02-01] MEDS: DULoxetine 30 MG CAP (CYMBALTA) PO SCH (08:39)
[2017-02-01] MEDS: ASCORBIC ACID 500 MG TAB PO SCH (08:40)
[2017-02-01] MEDS: LORATADINE 10 MG TAB PO SCH (08:40)
[2017-02-01] MEDS: OMEPRAZOLE 20 MG CAP PO SCH (08:40)
[2017-02-01] MEDS: DOCUSATE SODIUM 100 MG CAP PO SCH ×2 (08:40→20:05)
[2017-02-01] MEDS: APIXABAN 2.5 MG TAB (ELIQUIS) PO SCH ×2 (08:40→20:05)
[2017-02-01] MEDS: MULTIVITAMINS/MINERALS THERAP 1 TAB PO SCH (08:40)
[2017-02-01] MEDS: THIAMINE 100 MG TAB PO SCH ×2 (08:40→20:05)
[2017-02-01] MEDS: DOXYCYCLINE HYCLATE 100 MG TAB PO SCH ×2 (08:46→20:05)
--- NOTE | 2017-02-01 09:00 | IPNPDOC ---
Subjective Date Seen The patient was seen on 02/01/17. Subjective Chief Complaint/HPI The patient is a 71-year-old female admitted with a reason for visit of A-Fib With Rapid Ventricular Response. Events since last encounter HR remains elevated. Diuresing well with Lasix. per cardiology< needs further diuresis and adjustment of medications for HR. Constitutional: Denies: Chills, Fever, Night Sweats Pulmonary: Denies: Dyspnea, Cough Cardiovascular: Denies: Chest Pain, Palpitations, Orthopnea, Paroxysmal Noc. Dyspnea, Lt Headedness Gastrointestinal: Denies: Nausea, Vomiting, Abdominal Pain, Diarrhea, Constipation Genitourinary: Reports: Other Symptoms (Mendieta ) Objective Physical Examination General Exam: Positive: Alert, No Acute Distress Neck Exam: Positive: Supple, Negative: JVD Chest Exam: Positive: Rales (LLL) Heart Exam: Positive: Rate Normal, Irregular Rhythm, Murmurs (3/6 NICK) Telemetry: Positive: Atrial fibrillation Abdomen Exam: Positive: Normal bowel sounds, Soft, Negative: Tenderness Extremity Exam: Positive: Edema (1+ pitting edema L>R. B/L distal erythema.) Assessment /Plan Problems (1) CHF (congestive heart failure) Status: Acute Problem Specific Plan: Consult Specialist, Monitor Clinically, Repeat Labs Problem Text: 02/01/17: cardiology managing. addition of digoxin today, increase in Lopressor dosing and Diuresing for net neg of 1500 ml. 01/31: BPs stable. Echo shows mod-severe mitral stenosis and severe tricuspid regurg, so pre-load dependent. Cardiology started low dose lasix. EF 30-35%, so could consider TAE, but in the setting of severe valvular heart disease, will defer to cardiology. Fluid balance net negative ~2100 mL over the last 2 days. - monitor on lasix; wt stable - followup cardiology recs; may be getting close to d/c however continues to have rales on exam 01/30: BPs stable. Severe mitral stenosis, so pre-load dependent. Cardiology consulted. 01/28 - Cardiology consulted. BNP 556. Received Lasix last night and earlier this AM between PRBC transfusions. BPs a little soft. (2) Atrial fibrillation with rapid ventricular response Status: Acute Problem Specific Plan: Consult Specialist, Monitor Clinically, Repeat Labs Problem Text: 01/31: Rate controlled. On PO Lopressor. 01/30/17: rate controlled. On PO Lopressor. Cardiology following. 01/29/17: rate controlled. On PO Lopressor. BP softer. will monitor. transfer to Med surg. 01/28 - Cardiology consulted. Pt seen by Dr Mtz whom she follows with as outpt. Pt getting Lopressor 5 mg IV q6hrs. Did get Dig in ER. Not getting anticoagulation. Anemic with question of blood loss. Received 2 units PRBCs. AM Hgb pending. (3) Elevated troponin Status: Acute Problem Specific Plan: Consult Specialist, Monitor Clinically, Repeat Labs Problem Text: 01/30: Stable low elevation in troponins. No current sx. No CKD. Likely secondary to CHF; EF 30-35% 01/30: Stable low elevation in troponins. No current sx. No CKD. 01/28 - Cardiology consulted. Trops 0.25/ 0.24/ Pending. (4) Cellulitis of both lower extremities Status: Acute Problem Specific Plan: Monitor Clinically, Repeat Labs Problem Text: 01/30: No documented fever or white count. More likely due to stasis dermatitis, but pt was started on vanc, pos due to diabetic foot wound. Improving. Transition to PO. 01/29/17: WBC stable. Erythema behing margins of marking 01/28 - Started on Vanco. Today's WBC pending. Doppler U/S: No evidence of DVT in the lower extremities bilaterally. 2 cm left Miller's cyst. (5) Anemia Status: Acute Problem Specific Plan: Monitor Clinically, Repeat Labs Problem Text: 01/29/17: hgb 10.7. monitor. OB negative. 01/28 - Pt received 2 units PRBCs. Today's CBC Pending. (6) Pleural effusion Status: Acute Problem Specific Plan: Monitor Clinically, Repeat Labs Problem Text: Likely secondary to heart failure. (7) Diabetic foot ulcer Status: Acute Problem Specific Plan: Consult Specialist, Monitor Clinically, Repeat Labs Problem Text: 01/31: Continues to do well on by mouth doxycycline day 1 01/30: transitioned to PO doxycycline 01/28 - Follows with Dr Aguilar/podiatry. Started on Vanco. (8) DM2 (diabetes mellitus, type 2) Status: Chronic Problem Specific Plan: Monitor Clinically, Repeat Labs Problem Text: SSI (9) Hyperlipidemia Status: Chronic Problem Specific Plan: Monitor Clinically, Repeat Labs Problem Text: Lipitor (10) ANGEL LUIS (acute kidney injury) Status: Resolved Problem Specific Plan: Monitor Clinically, Repeat Labs Problem Text: 01/31: ANGEL LUIS resolved 01/29/17: improved Cr. 1.10. baseline 0.7 01/28 - Today's labs pending. Plan/VTE VTE Prophylaxis Ordered?: No (order TEDs and SCDs) Plan/Urinary Catheter Reason for insertion/continuin: Critical Pt monitoring VS, I&O, 24H, Fishbone Vital Signs/I&O Vital Signs Date Time Temp Pulse Resp B/P (MAP) Pulse Ox O2 Delivery O2 Flow Rate FiO2 02/01/17 08:39 20 02/01/17 06:52 82 117/71 02/01/17 06:00 97.5 94 01/31/17 21:00 Room Air 2.0 I&O- Last 24 Hours up to 6 AM 02/01/17 05:59 Intake Total 660 ml Output Total 1900 ml Balance -1240 ml Laboratory Data 24H LABS Laboratory Tests 2 01/31/17 11:24: Bedside Glucose (Misc Panel) 222H 01/31/17 16:51: Bedside Glucose (Misc Panel) 117H 01/31/17 20:44: Bedside Glucose (Misc Panel) 200H 02/01/17 06:43: Anion Gap 7L, Glomerular Filtration Rate > 60.0, Blood Urea Nitrogen 17, Creatinine 0.71, Sodium Level 140, Potassium Level 4.2, Chloride Level 105, Carbon Dioxide Level 28, Calcium Level 8.5L 02/01/17 06:45: Bedside Glucose (Misc Panel) 135H CBC/BMP Laboratory Tests 02/01/17 06:43 Red Blood Count 4.43, Mean Corpuscular Volume 85.8, Mean Corpuscular Hemoglobin 27.3, Mean Corpuscular Hemoglobin Concent 31.8 L, Red Cell Distribution Width 16.0 H, Calcium Level 8.5 L Microbiology Microbiology 01/27/17 Blood Culture - Preliminary, Resulted No Growth after 72 hours. All specime... 01/27/17 Blood Culture - Preliminary, Resulted No Growth after 72 hours. All specime... 01/31/17 Stool Occult Blood (RYAN) - Final, Complete 01/31/17 Gastrointestinal Tract Panel (PCR) - Final, Complete 01/28/17 Stool Occult Blood (RYAN) - Final, Complete 01/28/17 Urine Culture - Final, Complete 01/29/17 Gram Stain - Final, Complete 01/29/17 Wound Culture - Final, Complete 01/29/17 Anaerobic Culture - Final, Complete Attending Note Attending Note patient seen and examined. agree with findings and plan as noted by Ms Evans. Tammi Evans Feb 01, 2017 09:00 Gary Villalobos MD Feb 01, 2017 15:32
--- NOTE | 2017-02-01 09:05 | IPN ---
DATE: 02/01/2017 Mrs. Farah tells me she is feeling much better. She feels that her dyspnea is not much different compared to baseline, and she feels that her legs feel better as well. Blood pressure 114/71, has been mostly above 110 consistently. Heart rate has been in 90s. She is afebrile. Saturation is 92-94% on 2 liters of oxygen by nasal cannula. Fluid balance yesterday was about 1.2 liters negative. Weight is 64 kg. She is alert and oriented appropriate. Her jugular venous pulse (JVP) not grossly elevated. Lungs are relatively clear to auscultation with improved air movement. Heart exam reveals somewhat muffled heart sound, difficult to auscultate due to her kyphoscolioses. I still do not appreciate a murmur of mitral stenosis. Abdomen soft. There is still 1-2+ edema on her shins. The redness on both lower extremities is improving. Laboratory baez: CBC: Hemoglobin 12.1, hematocrit 38, platelet count 286,000. Basic metabolic panel: Potassium 4.2, BUN 17, creatinine 0.7, glucose 126. ASSESSMENT AND PLAN: Mr. Farah is a 71-year-old female who has now persistent atrial fibrillation and known mitral stenosis. The echocardiogram was performed on Wednesday night and did reveal depressed left ventricular (LV) systolic function with ejection fraction (EF) about 35-40%, aortic sclerosis, and the mitral stenosis was not felt to be more than moderate even though the quantification was limited. The atrial fibrillation is now reasonably rate Controlled on beta-blockers, but because of his concomitant mitral stenosis it would be beneficial to be slower. Consequently, I am going to change her Toprol XL to once a day dosing 100 mg and I am going to add digoxin just 0.125 mg daily. She has been anticoagulated with Eliquis in reduced dose and so far has been tolerating it well. If this continues I think we can advance the dose to full therapeutic dose. As far as the congestive heart failure is concerned, she was started on diuretics only the day before yesterday and in a fairly small dose. She is still volume overloaded and I am going to advance the dose further. I do not believe that she is quite ready for discharge also because in the past there were always issues with compliance. I spoke with the attending physician and they will have the patient and family services look into her home situation. My communication was with ISAAC Luke. ESTHER
[2017-02-01] MEDS: DIGOXIN 0.125 MG TAB PO SCH (09:06)
[2017-02-01] MEDS: FUROSEMIDE 20 MG/2 ML VIAL (J1940) IV SCH ×2 (09:13→16:36)
[2017-02-01 14:00] VITALS: BP 130/84
[2017-02-01 20:11] VITALS: BP 134/60
[2017-02-01] MEDS ORDERED: METOPROLOL SUCC (TopROL XL) 100MG *XL* TAB PO SCH (21:00)
[2017-02-01 22:00] VITALS: BP 134/60
[2017-02-02] MEDS: FUROSEMIDE 20 MG/2 ML VIAL (J1940) IV SCH ×2 (00:54→08:26)
[2017-02-02 06:00] VITALS: BP 131/73
[2017-02-02] MEDS: IPRATROPIUM 0.5MG/ALBUTEROL 2.5MG INH SOL UD 3ML (DUONEB)(J7620) NEB SCH (07:20)
[2017-02-02] MEDS ORDERED: DIGO0.12 PO (08:23)
[2017-02-02] MEDS ORDERED: METO1TAB33 PO (08:23)
[2017-02-02] MEDS ORDERED: ASPI1TAB PO (08:23)
[2017-02-02] MEDS ORDERED: ELIQ5TAB PO (08:23)
[2017-02-02] MEDS: HumaLOG INSULIN (NovoLOG) PER UNIT SC SCH ×2 (08:25→12:35)
[2017-02-02] MEDS: LACTOBACILLUS ACIDOPHILUS CAP (BACID) PO SCH (08:26)
[2017-02-02] MEDS: GABAPENTIN 300 MG CAP PO SCH (08:27)
[2017-02-02] MEDS: ASPIRIN ENTERIC 325 MG TAB PO SCH (08:27)
[2017-02-02] MEDS: DULoxetine 30 MG CAP (CYMBALTA) PO SCH (08:27)
[2017-02-02] MEDS: OMEPRAZOLE 20 MG CAP PO SCH (08:27)
[2017-02-02] MEDS: ATORVASTATIN 10 MG TAB PO SCH (08:27)
--- NOTE | 2017-02-02 08:27 | IPN ---
DATE: 02/02/2017 Mrs. Farah is feeling much better today. Again, she tells me that her breathing is probably better than her baseline. Denies any palpitations or chest pain. Blood pressure 131/73. Heart rate has been in 70s and low 80s. She is afebrile. Saturation 94% on room air. Fluid balance yesterday was 1 liter and a 1/2 negative. Weight is documented 59.6 kg. She is alert and oriented. Unfortunately, due to her chronic orthopedic problems, she still has difficulty ambulating. Her jugular venous pulse (JVP), I no longer appreciate as elevated. Lungs are clear to auscultation bilaterally. Heart exam reveals regular irregular rhythm. I do not appreciate a murmur of MS. Abdomen is soft. There is still trace peripheral edema. Laboratory-baez, normal CBC, normal basic metabolic panel but for glucose of 126. ASSESSMENT/PLAN: Mrs. Farah is a 71-year-old female who has known at least moderate and probable moderately severe mitral stenosis and reduced left ventricular systolic function. She presented with atrial fibrillation and rapid ventricular response (RVR) and congestive heart failure. She seems to be reasonably well-controlled on combination of metoprolol and digoxin. She is now anticoagulated with a reduced dose of apixaban because she was quite anemic, but it seems to have been well tolerated and I would advance the dose to a full 5 mg twice a day upon discharge. I think we can reduce her aspirin to just a baby aspirin a day. She is already on statin. I had a long discussion with her on previous days. She does not believe that she could undergo open heart surgery to correct her mitral valve disease and I think she is probably correct about that. The heavy calcification probably will not allow performance of balloon valvuloplasty. Consequently, we will be left with purely medical management. I think that her home dose of furosemide 40mg twice a day is probably appropriate. MTDD
[2017-02-02] MEDS: APIXABAN 2.5 MG TAB (ELIQUIS) PO SCH (08:29)
[2017-02-02] MEDS: DOXYCYCLINE HYCLATE 100 MG TAB PO SCH (08:29)
[2017-02-02] MEDS: LORATADINE 10 MG TAB PO SCH (08:29)
[2017-02-02] MEDS: THIAMINE 100 MG TAB PO SCH (08:29)
[2017-02-02] MEDS: DIGOXIN 0.125 MG TAB PO SCH (08:29)
[2017-02-02] MEDS: DOCUSATE SODIUM 100 MG CAP PO SCH (08:29)
[2017-02-02] MEDS: MULTIVITAMINS/MINERALS THERAP 1 TAB PO SCH (08:29)
[2017-02-02] MEDS: ASCORBIC ACID 500 MG TAB PO SCH (08:29)
[2017-02-02] MEDS: oxyCODONE 40 MG CR TAB PO SCH (08:30)
[2017-02-02 09:18] LABS: ANION GAP 7 MEQ/L (8-16); BLOOD UREA NITROGEN 16 MG/DL (7-18); CALCIUM LEVEL 8.3 MG/DL (8.8-10.2); CARBON DIOXIDE LEVEL 29 MEQ/L (21-32); CHLORIDE LEVEL 107 MEQ/L (98-107); CREATININE FOR GFR 0.76 MG/DL (0.55-1.02); GLOMERULAR FILTRATION RATE > 60.0 (>39); GLUCOSE, FASTING 150 MG/DL (83-110); POTASSIUM SERUM 4.2 MEQ/L (3.5-5.1); SODIUM LEVEL 143 MEQ/L (136-145)
--- NOTE | 2017-02-03 10:11 | DSES ---
DATE OF ADMISSION: 01/27/2017 DATE OF DISCHARGE: 02/02/2017 ATTENDING PHYSICIAN: Gary Villalobos MD PRIMARY CARE PROVIDER: Zackary Lorenz MD BELLMAKER: Cherrie Mtz MD SHELLFISH HARVESTER: Tito Aguilar DPM HISTORY OF PRESENT ILLNESS: A 71-year-old female who presented to the office after direction from her nurse quality, Dr. Aguilar, for feeling short of breath for roughly 1 week with palpitations and feeling weak. She was advised to seek emergent evaluation in the emergency room. Workup in the emergency room (ER) proved the patient had atrial fibrillation with rapid ventricular response with a ventricular rate in the 140s-150. The patient was also found to have decompensated heart failure with lower extremity edema. The patient had acute blood loss anemia with a hemoglobin of 8.6, pulmonary edema with bilateral pleural effusion, abdominal cramping with diarrhea, diabetic foot ulcer. The patient was subsequently admitted to family medicine service. She was admitted to progressive care unit (PCU) and monitored on telemetry. She was aggressively diuresed, as well as placed on intravenous (IV) Lopressor to obtain heart rate control. Within 24 hours, the patient's heart rate improved. Cardiology continued to monitor the patient, and medications were adjusted accordingly. The patient was placed on increased doses of metoprolol, digoxin, and furosemide. She was also placed on Eliquis. CONSULTATIONS: Include cardiology, Cherrie Mtz MD. IMAGING: The patient had two chest x-rays, as well as vascular ultrasound. Chest x-ray proved cardiomegaly with interstitial edema and pleural effusions. The patient was tested for her anemia with a negative hemoccult. Diarrhea was evaluated with a gastrointestinal (GI) panel, which was negative. Wound culture of the right foot showed moderate WBCs with no active organisms. Urine culture and blood cultures were also negative. On physical examination today, the patient appears well compensated. Blood pressure is stable at 131/73, heart rate is stable in 70-80 range, respiratory rate of 18, oxygen saturation 94% on room air. General: The patient is resting comfortably in her chair. HEENT: Neck is supple without lymphadenopathy or jugular venous distention (JVD). Cardiovascular: Heart rate and rhythm are irregularly irregular. Pulmonary: Lungs are clear. Abdomen: Is soft and nontender. Bilateral lower extremities are with trace edema. ASSESSMENT: DISCHARGE DIAGNOSES: 1. Atrial fibrillation with rapid ventricular response (RVR). 2. Decompensated systolic CHF with EF 30-35%. 3. Anemia. 4. Pulmonary edema with bilateral pleural effusion. 5. Abdominal cramping with diarrhea. 6. Acute kidney injury. SECONDARY DIAGNOSES: Include: 1. Diabetic foot ulcer. 2. Uncontrolled diabetes. 3. Chronic pain with scoliosis. 4. Chronic obstructive pulmonary disease (COPD). 5. Obstructive sleep apnea. 6. Hyperlipidemia. 7. Insomnia. PLAN: The patient will be discharged home after a home safety evaluation with physical therapy. She is agreeable to [facility]. If the patient is agreeable to [facility], we will initiate referral. She will followup with her primary care provider within the next week. Diet is [id number]. Activity is out of bed with walker. Prescriptions are as follows: Eliquis 5 mg by mouth twice a day, aspirin 81 mg by mouth daily, digoxin 0.125 mg by mouth daily, metoprolol succinate 100 mg by mouth nightly, albuterol sulfate every 6 hours as needed shortness of breath, albuterol sulfate HFA two puffs every 4 hours as needed shortness of breath, vitamin D 500 mg by mouth daily, atorvastatin 10 mg daily, Colace 100 mg by mouth twice a day, duloxetine 30 mg daily, furosemide 40 mg twice a day, gabapentin 300 mg twice a day, gabapentin 600 mg daily, glipizide 10 mg twice a day, loratadine 10 mg daily, metformin 1000 mg twice a day, multivitamin one daily, omeprazole 60 mg daily, oxycodone 60 mg tablets by mouth every 12, oxycodone with acetaminophen 5/325 one tablet by mouth every 6 hours as needed for pain, by mouth glitazone 15 mg by mouth daily, mirapex 0.25 mg by mouth twice a day as needed restlessness, silvadene one dose topically twice a day, thiamine 100 mg by mouth twice a day, Zolpidem tartrate 10 mg by mouth nightly as needed sleep. The patient is discharged in stable satisfactory condition with no further questions at the time of discharge. [facility]
== END 2017-02-02 15:31 | disposition home health service (06) | DRG 308 ==
LOC: M ED 16:30 → M ED INP 20:31 → M ICU 23:41 → M MSPAV 01-29 14:53
PROVIDERS: ADMIT General Practice; ATTEND Family Medicine
PROC: 30233N1 Transfusion of Nonautologous Red Blood Cells into Peripheral Vein, Percutaneous Approach (ICD-10-PCS; principal; 2017-01-28)
DX: I48.0 Paroxysmal atrial fibrillation (principal); I50.21 Acute systolic (congestive) heart failure; D62 Acute posthemorrhagic anemia; N17.9 Acute kidney failure, unspecified; J90 Pleural effusion, not elsewhere classified; J81.1 Chronic pulmonary edema; L03.115 Cellulitis of right lower limb; L03.116 Cellulitis of left lower limb; G47.33 Obstructive sleep apnea (adult) (pediatric); E78.5 Hyperlipidemia, unspecified; G47.00 Insomnia, unspecified; E11.621 Type 2 diabetes mellitus with foot ulcer; Z95.0 Presence of cardiac pacemaker; Z88.8 Allergy status to other drugs, medicaments and biological substances; Z88.1 Allergy status to other antibiotic agents; Z88.0 Allergy status to penicillin; Z79.84 Long term (current) use of oral hypoglycemic drugs; Z79.899 Other long term (current) drug therapy; Z89.422 Acquired absence of other left toe(s); Z98.49 Cataract extraction status, unspecified eye; F17.210 Nicotine dependence, cigarettes, uncomplicated; Z82.49 Family history of ischemic heart disease and other diseases of the circulatory system; Z84.1 Family history of disorders of kidney and ureter; Z80.6 Family history of leukemia; Z99.89 Dependence on other enabling machines and devices

== ENCOUNTER → 2017-02-08 | Outpatient (REF) | payer MEDICARE, MEDICAID ==
[~2017-02-08] MED LIST changes: +ALBU83IN INH; +ALEV220T26 PO; +ASPI1TAB PO; +ASPI325T24 PO; +ATOR1TAB19 PO; +DIGO0.12 PO; +DULO1CAP2 PO; +ELIQ5TAB PO; +ENAL10TA2 PO; +GABA-282 PO; +METF10004 PO; +METO1TAB33 PO; +MIRA0.254 PO; +OXYC1TAB23 PO; +OXYC60TA8 PO; +PIOG15TA3 PO; +PROAAER10 INH; +STOO100C PO; +THIA100T6 PO; +VITMTA PO; +ZOLP10TA2 PO
[2017-02-08 19:48] LABS: BASO # 0.1 K/mm3 (0.0-0.2); BASO % 1.3 % (0.0-1.0); EOS # 0.1 K/mm3 (0.0-0.50); EOS % 1.1 % (0.0-3.0); LARGE UNSTAINED CELL # 0.1 K/mm3 (0.0-0.4); LYMPH # 1.9 K/mm3 (1.5-4.5); LYMPH % 17.6 % (24.0-44.0); MEAN CORPUSCULAR HEMOGLOBIN 26.8 pg (27.0-33.0); MEAN CORPUSCULAR HGB CONC 31.5 g/dl (32.0-36.5); MEAN CORPUSCULAR VOLUME 85.2 fl (80.0-96.0); MONO # 0.5 K/mm3 (0.0-0.8); MONO % 4.7 % (0.0-5.0); NEUTROPHILS # 7.9 K/mm3 (1.8-7.7); NEUTROPHILS % 74.4 % (36.0-66.0); PLATELET COUNT, AUTOMATED 265 k/mm3 (150-450); RED CELL DISTRIBUTION WIDTH 16.1 % (11.5-14.5); WHITE BLOOD COUNT 10.6 K/mm3 (4.0-10.0)
[2017-02-08 20:21] LABS: ALBUMIN 2.7 GM/DL (3.2-5.2); ALBUMIN/GLOBULIN RATIO 0.66 (1.00-1.93); ALKALINE PHOSPHATASE 69 U/L (45-117); ALT/SGPT 11 U/L (12-78); ANION GAP 10 MEQ/L (8-16); AST/SGOT 19 U/L (15-37); BILIRUBIN,TOTAL 0.3 MG/DL (0.2-1.0); BLOOD UREA NITROGEN 11 MG/DL (7-18); CALCIUM LEVEL 7.5 MG/DL (8.8-10.2); CARBON DIOXIDE LEVEL 32 MEQ/L (21-32); CHLORIDE LEVEL 101 MEQ/L (98-107); CREATININE FOR GFR 0.75 MG/DL (0.55-1.02); DIGOXIN LEVEL 1.2 NG/ML (0.5-2.0); GLOMERULAR FILTRATION RATE > 60.0 (>39); GLUCOSE, FASTING 136 MG/DL (83-110); POTASSIUM SERUM 3.4 MEQ/L (3.5-5.1); SODIUM LEVEL 143 MEQ/L (136-145); TOTAL PROTEIN 6.8 GM/DL (6.4-8.2)
== END ==
LOC: M SFHCCLAY 11:01
PROVIDERS: ATTEND Family Medicine
DX: I50.42 Chronic combined systolic (congestive) and diastolic (congestive) heart failure (principal); I48.2 Chronic atrial fibrillation
CPT/HCPCS: 36415; 80053; 80162; 85025; G0463

== ENCOUNTER → 2017-02-25 | Outpatient (REF) | payer MEDICARE, MEDICAID | LOC: M LAB REF 17:05 | PROVIDERS: ATTEND Podiatrist | DX: L03.031 Cellulitis of right toe (principal); Z79.899 Other long term (current) drug therapy ==